=== PATIENT | male | born 1985 | race Hispanic/Latino ===

== ENCOUNTER 2018-12-02 05:45 | Emergency (ER) | payer SELFPAY ==
--- OUTSIDE RECORDS SUMMARY | 2018-12-02 05:54 | XMS REPORT ---
:1985 [facility] Address [address] [place] [address] [address] [place] [address] Care Team Providers Name Role Phone Unavailable Unavailable Unavailable Payers Payer Name Policy Type Policy Number Effective Date Expiration Date Problems This patient has no known problems. Allergies, Adverse Reactions, Alerts Allergy Allergy Status Severity Reaction(s) Onset Inactive Treating Comments Name Type Date Date Clinician No Known DA Active U 2018-06 Allergies -21 00:00:0 0 No Known DA Active U 2010-11 Allergies -03 00:00:0 0 Medications This patient has no known medications.
--- NOTE | 2018-12-02 07:47 | EDPHYS ---
Physician Documentation [facility] Name: Sly Mcgee Age: 33 yrs Sex: Male : 1985 Arrival Date: 12/02/2018 Time: 05:54 Bed 2 Private MD: ED Physician Domenico Fernandez HPI: 12/02 06:19 This 33 yrs old Male presents to ER via Ambulatory with complaints of COUGH snw BLOOD. 06:19 The patient or guardian reports cough, flu symptoms, low-grade fever, myalgias, no snw appetite, N/V/D. Onset: The symptoms/episode began/occurred suddenly, 4 day(s) ago. Severity of symptoms: At their worst the symptoms were moderate. Associated signs and symptoms: The patient has no apparent associated signs or symptoms. It is unknown whether or not the patient has had similar symptoms in the past. The patient has not recently seen a physician. Spouse with similar s/s. Historical: - Allergies: 06:11 No Known Allergies; bb - Home Meds: 06:11 None [Active]; bb - PMHx: 06:11 Pneumonia; staph infections; bb - PSHx: 06:11 Knee surgery; bb - Immunization history:: Adult Immunizations up to date. - Social history:: Smoking status: Patient uses tobacco products, denies chronic smoking, but will smoke occasionally, Patient uses alcohol, but reports only rare drinking. Patient/guardian denies using street drugs. - Ebola Screening: : No symptoms or risks identified at this time. ROS: 06:18 Constitutional: Negative for chills and weight loss, + fever 4 days ago Eyes: Negative snw for injury, pain, redness, and discharge, ENT: Negative for injury, pain, and discharge, Neck: Negative for injury, pain, and swelling, Cardiovascular: Negative for chest pain, palpitations, and edema. 06:18 Back: Negative for injury and pain, : Negative for injury, bleeding, discharge, and swelling, MS/Extremity: Negative for injury and deformity, Skin: Negative for injury, rash, and discoloration, Neuro: Negative for headache, weakness, numbness, tingling, and seizure. 06:18 Respiratory: Positive for cough, with rust-colored sputum. 06:18 Abdomen/GI: Positive for nausea, vomiting, diarrhea. Exam: 06:18 Constitutional: This is a well developed, well nourished patient who is awake, alert, snw and in no acute distress. Head/Face: Normocephalic, atraumatic. Eyes: Pupils equal round and reactive to light, extra-ocular motions intact. Lids and lashes normal. Conjunctiva and sclera are non-icteric and not injected. Cornea within normal limits. Periorbital areas with no swelling, redness, or edema. ENT: Nares patent. No nasal discharge, no septal abnormalities noted. Tympanic membranes are normal and external auditory canals are clear. Oropharynx with no redness, swelling, or masses, exudates, or evidence of obstruction, uvula midline. Mucous membranes moist. Neck: Trachea midline, no thyromegaly or masses palpated, and no cervical lymphadenopathy. Supple, full range of motion without nuchal rigidity, or vertebral point tenderness. No Meningismus. Chest/axilla: Normal chest wall appearance and motion. Nontender with no deformity. No lesions are appreciated. Cardiovascular: Regular rate and rhythm with a normal S1 and S2. No gallops, murmurs, or rubs. Normal PMI, no JVD. No pulse deficits. Respiratory: Lungs have equal breath sounds bilaterally, clear to auscultation and percussion. No rales, rhonchi or wheezes noted. No increased work of breathing, no retractions or nasal flaring. Abdomen/GI: Soft, non-tender, with normal bowel sounds. No distension or tympany. No guarding or rebound. No evidence of tenderness throughout. Back: No spinal tenderness. No costovertebral tenderness. Full range of motion. Skin: Warm, dry with normal turgor. Normal color with no rashes, no lesions, and no evidence of cellulitis. MS/ Extremity: Pulses equal, no cyanosis. Neurovascular intact. Full, normal range of motion. Neuro: Awake and alert, GCS 15, oriented to person, place, time, and situation. Cranial nerves II-XII grossly intact. Motor strength 5/5 in all extremities. Sensory grossly intact. Cerebellar exam normal. Normal gait. Vital Signs: 06:11 BP 130 / 89; Pulse 62; Resp 16 S; Temp 98.4(O); Pulse Ox 98% on R/A; Weight 113.4 kg bb (R); Height 6 ft. 4 in. (193.04 cm) (R); Pain 0/10; 07:15 BP 126 / 88; Pulse 69; Resp 18; Pulse Ox 98% ; sv 06:11 Body Mass Index 30.43 (113.40 kg, 193.04 cm) bb MDM: 06:03 Patient medically screened. snw 07:48 Data reviewed: vital signs, nurses notes. Data interpreted: Pulse oximetry: on room air snw is 98 %. Interpretation: normal. Counseling: I had a detailed discussion with the patient and/or guardian regarding: the historical points, exam findings, and any diagnostic results supporting the discharge/admit diagnosis, radiology results, the need for outpatient follow up, to return to the emergency department if symptoms worsen or persist or if there are any questions or concerns that arise at home. Special discussion: Based on the history and exam findings, there is no indication for further emergent testing or inpatient evaluation. I discussed with the patient/guardian the need to see the primary care provider for further evaluation of the symptoms. 12/02 05:56 Order name: Chest Pa And Lat (2 Views) XRAY snw Administered Medications: 08:15 Drug: Phenergan 25 mg Route: IM; Site: left gluteus; sv 08:34 Follow up: Response: No adverse reaction sv 08:15 Drug: Zithromax 500 mg Route: PO; sv 08:34 Follow up: Response: No adverse reaction sv 08:15 Drug: Rocephin (cefTRIAXone) 1 grams Route: IM; Site: left gluteus; sv 08:34 Follow up: Response: No adverse reaction sv Disposition: 12/02/18 07:46 Discharged to Home. Impression: Pneumonia, unspecified organism. - Condition is Stable. - Discharge Instructions: Fever, Adult, Community-Acquired Pneumonia, Adult, Rehydration, Adult. - Prescriptions for Tessalon Perles 100 mg Oral Capsule - take 1 capsule by ORAL route every 8 hours As needed; 15 capsule. promethazine 25 mg Oral Tablet - take 1 tablet by ORAL route every 6 hours As needed; 20 tablet. Zithromax 500 mg Oral Tablet - take 1 tablet by ORAL route once daily for 5 days; 5 tablet. - Work release form, Medication Reconciliation Form, Thank You Letter, Antibiotic Education, Prescription Opioid Use form. - Follow up: Private Physician; When: 2 - 3 days; Reason: Recheck today's complaints, Continuance of care, Re-evaluation by your physician. Follow up: Emergency Department; When: As needed; Reason: Worsening of condition. Signatures: Dispatcher [employer] Nunu Bowden RN RN Marta Can, LEVELMAN-C LEVELMAN-Csnw Kay Avila RN RN bb Corrections: (The following items were deleted from the chart) 08:35 07:46 12/02/2018 07:46 Discharged to Home. Impression: Pneumonia, unspecified organism. sv Condition is Stable. Forms are Medication Reconciliation Form, Thank You Letter, Antibiotic Education, Prescription Opioid Use. Follow up: Private Physician; When: 2 - 3 days; Reason: Recheck today's complaints, Continuance of care, Re-evaluation by your physician. Follow up: Emergency Department; When: As needed; Reason: Worsening of condition. snw
--- NOTE | 2018-12-02 07:47 | ER ---
Nurse's Notes [facility] Name: Sly Mcgee Age: 33 yrs Sex: Male : 1985 Arrival Date: 12/02/2018 Time: 05:54 Bed 2 Private MD: Diagnosis: Pneumonia, unspecified organism Presentation: 12/02 06:08 Presenting complaint: Patient states: he has been sick since with fever, bb cough, chills and body aches, when he woke up this morning he was coughing up pinkish phlegm, pt has had pneumonia in the past. He has been taking OTC cough and cold remedies with no relief. Transition of care: patient was not received from another setting of care. Onset of symptoms was November 27, 2018. Risk Assessment: Do you want to hurt yourself or someone else? Patient reports no desire to harm self or others. Initial Sepsis Screen: Does the patient meet any 2 criteria? No. Patient's initial sepsis screen is negative. Does the patient have a suspected source of infection? No. Patient's initial sepsis screen is negative. Care prior to arrival: None. 06:08 Method Of Arrival: Ambulatory bb 06:08 Acuity: MARIE 3 bb Historical: - Allergies: 06:11 No Known Allergies; bb - Home Meds: 06:11 None [Active]; bb - PMHx: 06:11 Pneumonia; staph infections; bb - PSHx: 06:11 Knee surgery; bb - Immunization history:: Adult Immunizations up to date. - Social history:: Smoking status: Patient uses tobacco products, denies chronic smoking, but will smoke occasionally, Patient uses alcohol, but reports only rare drinking. Patient/guardian denies using street drugs. - Ebola Screening: : No symptoms or risks identified at this time. Screenin:04 Abuse screen: Denies threats or abuse. Nutritional screening: No deficits noted. ea Tuberculosis screening: No symptoms or risk factors identified. Fall Risk None identified. Assessment: 06:50 General: Appears in no apparent distress. Behavior is calm, cooperative, appropriate ea for age. Pain: Denies pain. Neuro: Level of Consciousness is awake, alert, obeys commands, Oriented to person, place, time, situation. Cardiovascular: Patient's skin is warm and dry. Respiratory: Airway is patent Respiratory effort is even, unlabored, Respiratory pattern is regular, symmetrical. Respiratory: Parent/caregiver reports the patient having cough that is productive, hacking, persistent. Derm: Skin is dry, Skin is normal, Skin temperature is warm. 07:30 Reassessment: Patient appears in no apparent distress at this time. No changes from sv previously documented assessment. Patient and/or family updated on plan of care and expected duration. Pain level reassessed. Patient is alert, oriented x 3, equal unlabored respirations, skin warm/dry/pink. 08:35 Reassessment: Patient appears in no apparent distress at this time. No changes from sv previously documented assessment. Patient and/or family updated on plan of care and expected duration. Pain level reassessed. Patient is alert, oriented x 3, equal unlabored respirations, skin warm/dry/pink. Vital Signs: 06:11 BP 130 / 89; Pulse 62; Resp 16 S; Temp 98.4(O); Pulse Ox 98% on R/A; Weight 113.4 kg bb (R); Height 6 ft. 4 in. (193.04 cm) (R); Pain 0/10; 07:15 BP 126 / 88; Pulse 69; Resp 18; Pulse Ox 98% ; sv 06:11 Body Mass Index 30.43 (113.40 kg, 193.04 cm) ED Course: 05:54 Patient arrived in ED. es 05:56 Marta Leonard FNP-C is PHCP. snw 05:56 Domenico Fernandez MD is Attending Physician. snw 06:10 Triage completed. bb 06:11 Arm band placed on Patient placed in an exam room, on a stretcher, on pulse oximetry. bb Family accompanied patient. 06:41 Chest Pa And Lat (2 Views) XRAY In Process Unspecified. EDMS 06:50 Patient has correct armband on for positive identification. Bed in low position. Call ea light in reach. 08:14 Nunu Gutierrez, CRAIG is Primary Nurse. sv 08:34 No provider procedures requiring assistance completed. Patient did not have IV access sv during this emergency room visit. Administered Medications: 08:15 Drug: Phenergan 25 mg Route: IM; Site: left gluteus; sv 08:34 Follow up: Response: No adverse reaction sv 08:15 Drug: Zithromax 500 mg Route: PO; sv 08:34 Follow up: Response: No adverse reaction sv 08:15 Drug: Rocephin (cefTRIAXone) 1 grams Route: IM; Site: left gluteus; sv 08:34 Follow up: Response: No adverse reaction sv Outcome: 07:46 Discharge ordered by MD. mcnamara 08:35 Patient left the ED. sv 08:35 Discharged to home ambulatory, with family. sv 08:35 Condition: stable 08:35 Discharge instructions given to patient, family, Instructed on discharge instructions, follow up and referral plans. medication usage, Demonstrated understanding of instructions, follow-up care, medications, Prescriptions given X 3. Signatures: Dispatcher [employer] Nunu Bowden RN RN Marta Can, GROUP PRESIDENT-C GROUP PRESIDENT-Csnw Courtney Eubanks Brenda RN RN Hanna Loredo RN RN elidia
[2018-12-02] MEDS ORDERED: AZITHROMYCIN 250 MG TAB ONE (08:17)
[2018-12-02] MEDS ORDERED: CEFTRIAXONE 1000 MG/VIAL ONE (08:17)
[2018-12-02] MEDS ORDERED: LIDOCAINE 1% MPF 2 ML AMPULE ONE (08:17)
[2018-12-02] MEDS ORDERED: PROMETHAZINE HCL 50 MG/ML AMP IM ONE (08:18)
--- NOTE | 2018-12-02 08:40 | RAD REPORT ---
EXAM DESCRIPTION: Astrid Xiong (2 Views)12/02/2018 6:45 am CLINICAL HISTORY: Cough COMPARISON: None FINDINGS: The lungs appear clear of acute infiltrate. The heart is normal size IMPRESSION: No acute abnormalities displayed
== END 2018-12-02 08:35 | disposition home or self-care (01) ==
LOC: ER 05:47
DX: J18.9 Pneumonia, unspecified organism (principal); Z72.0 Tobacco use
CPT/HCPCS: 71046; 96372; 99284; J2001; J2550

== ENCOUNTER 2019-01-19 06:06 | Emergency (ER) | payer SELFPAY ==
--- OUTSIDE RECORDS SUMMARY | 2019-01-19 06:09 | XMS REPORT ---
:1985 [facility] Address [address] [place] [address] [address] [place] [address] Care Team Providers Name Role Phone Unavailable [...]
[2019-01-19] MEDS ORDERED: ONDANSETRON 4 MG (ODT) TAB ONE (06:48)
--- NOTE | 2019-01-19 07:05 | EDPHYS ---
Physician Documentation [facility] Name: Sly Mcgee Age: 33 yrs Sex: Male : 1985 Arrival Date: 01/19/2019 Time: 06:10 Bed 20 Private MD: ED Physician Tom Oakes HPI: 01/19 06:31 This 33 yrs old Male presents to ER via Ambulatory with complaints of Nausea, jr8 "feels hot". 06:31 The patient presents to the emergency department with nausea, vomiting. Onset: The jr8 symptoms/episode began/occurred gradually, 3 day(s) ago. Possible causes: unknown. The symptoms are aggravated by nothing. The symptoms are alleviated by nothing. Associated signs and symptoms: Pertinent positives: dizziness. Severity of symptoms: At their worst the symptoms were mild. The patient has not experienced similar symptoms in the past. The patient has not recently seen a physician. Patient with recent complaints of generally not feeling well and nausea. Sent home from work the other day and still not feeling well. Historical: - Allergies: 06:20 No Known Allergies; bb - Home Meds: 06:20 None [Active]; bb - PMHx: 06:20 Pneumonia; staph infections; bb - PSHx: 06:20 Knee surgery; bb - Immunization history:: Adult Immunizations up to date. - Social history:: Smoking status: Patient/guardian denies using tobacco. - Ebola Screening: : No symptoms or risks identified at this time. ROS: 07:02 Eyes: Negative for injury, pain, redness, and discharge, ENT: Negative for injury, jr8 pain, and discharge, Neck: Negative for injury, pain, and swelling, Cardiovascular: Negative for chest pain, palpitations, and edema, Respiratory: Negative for shortness of breath, cough, wheezing, and pleuritic chest pain, Back: Negative for injury and pain, MS/Extremity: Negative for injury and deformity, Skin: Negative for injury, rash, and discoloration. 07:02 Abdomen/GI: Positive for nausea, Negative for abdominal pain, vomiting, diarrhea, abdominal cramps, abdominal distension, anorexia, dysphagia, hematemesis, black/tarry stool, rectal pain, rectal bleeding, bowel incontinence, flatulence. 07:02 Neuro: Positive for dizziness, Negative for altered mental status, gait disturbance, headache, hearing loss, loss of consciousness, numbness, seizure activity, speech changes, syncope, near syncope, tingling, tinnitus, tremor, visual changes, weakness. Exam: 07:02 Eyes: Pupils equal round and reactive to light, extra-ocular motions intact. Lids and jr8 lashes normal. Conjunctiva and sclera are non-icteric and not injected. Cornea within normal limits. Periorbital areas with no swelling, redness, or edema. ENT: Nares patent. No nasal discharge, no septal abnormalities noted. Tympanic membranes are normal and external auditory canals are clear. Oropharynx with no redness, swelling, or masses, exudates, or evidence of obstruction, uvula midline. Mucous membranes moist. Neck: Trachea midline, no thyromegaly or masses palpated, and no cervical lymphadenopathy. Supple, full range of motion without nuchal rigidity, or vertebral point tenderness. No Meningismus. Cardiovascular: Regular rate and rhythm with a normal S1 and S2. No gallops, murmurs, or rubs. Normal PMI, no JVD. No pulse deficits. Respiratory: Lungs have equal breath sounds bilaterally, clear to auscultation and percussion. No rales, rhonchi or wheezes noted. No increased work of breathing, no retractions or nasal flaring. Abdomen/GI: Soft, non-tender, with normal bowel sounds. No distension or tympany. No guarding or rebound. No evidence of tenderness throughout. Back: No spinal tenderness. No costovertebral tenderness. Full range of motion. Skin: Warm, dry with normal turgor. Normal color with no rashes, no lesions, and no evidence of cellulitis. MS/ Extremity: Pulses equal, no cyanosis. Neurovascular intact. Full, normal range of motion. Neuro: Awake and alert, GCS 15, oriented to person, place, time, and situation. Cranial nerves II-XII grossly intact. Motor strength 5/5 in all extremities. Sensory grossly intact. Cerebellar exam normal. Normal gait. Vital Signs: 06:20 BP 124 / 88; Pulse 52; Resp 16 S; Temp 98.6(O); Pulse Ox 97% on R/A; Weight 117.03 kg bb (R); Height 6 ft. 4 in. (193.04 cm) (R); Pain 4/10; 07:14 BP 126 / 80; Pulse 63; Resp 16; Temp 98; Pulse Ox 99% ; bp 06:20 Body Mass Index 31.40 (117.03 kg, 193.04 cm) masood MDM: 06:23 Patient medically screened. jr8 07:02 Data reviewed: vital signs, nurses notes, and as a result, I will discharge patient. jr8 Data interpreted: Pulse oximetry: on room air is 97 %. Interpretation: normal. Counseling: I had a detailed discussion with the patient and/or guardian regarding: the historical points, exam findings, and any diagnostic results supporting the discharge/admit diagnosis, the need for outpatient follow up, a family practitioner, to return to the emergency department if symptoms worsen or persist or if there are any questions or concerns that arise at home. ED course: Patient feeling better. Tolerated PO challenge. VS stable. No acute findings on physical exam. Recommend rest and will give nausea and dizziness medications for next few days. If other symptoms were to evolved or he get worse, to come back for further evaluation . 01/19 06:30 Order name: PO challenge; Complete Time: 06:47 [facility] Administered Medications: 06:34 Drug: Zofran 4 mg Route: PO; jd3 06:47 Follow up: Response: Nausea is decreased jd3 Disposition: 01/19/19 07:04 Discharged to Home. Impression: Nausea, Dizziness. - Condition is Stable. - Discharge Instructions: Nausea, Adult. - Prescriptions for Meclizine 25 mg Oral Tablet - take 1 tablet by ORAL route every 8 hours As needed; 30 tablet. Zofran 4 mg Oral Tablet - take 1 tablet by ORAL route every 12 hours As needed; 20 tablet. - Medication Reconciliation Form, Thank You Letter, Antibiotic Education, Prescription Opioid Use, Work release form form. - Follow up: Private Physician; When: 2 - 3 days; Reason: Recheck today's complaints, Continuance of care, Re-evaluation by your physician. - Problem is new. - Symptoms have improved. Signatures: Kay Avila, CRAIG RN Parag Kincaid PA PA jr8 Steve Terrazas RN RN jd3 Fritz Sung RN RN bp Corrections: (The following items were deleted from the chart) 07:16 07:04 01/19/2019 07:04 Discharged to Home. Impression: Nausea; Dizziness. Condition is bp Stable. Forms are Medication Reconciliation Form, Thank You Letter, Antibiotic Education, Prescription Opioid Use. Follow up: Private Physician; When: 2 - 3 days; Reason: Recheck today's complaints, Continuance of care, Re-evaluation by your physician. Problem is new. Symptoms have improved. jr8
--- NOTE | 2019-01-19 07:05 | ER ---
Nurse's Notes [facility] Name: Sly Mcgee Age: 33 yrs Sex: Male : 1985 Arrival Date: 01/19/2019 Time: 06:10 Bed 20 [facility] MD: Diagnosis: Nausea;Dizziness Presentation: 01/19 06:17 Presenting complaint: Patient states: he started feeling dizzy at work on Saturday with bb blurred vision and vomiting was sent home and did not go to work yesterday for same symptoms and still does not feel well today. Transition of care: patient was not received from another setting of care. Onset of symptoms was January 17, 2019. Risk Assessment: Do you want to hurt yourself or someone else? Patient reports no desire to harm self or others. Initial Sepsis Screen: Does the patient meet any 2 criteria? No. Patient's initial sepsis screen is negative. Does the patient have a suspected source of infection? No. Patient's initial sepsis screen is negative. Care prior to arrival: None. 06:17 Method Of Arrival: Ambulatory bb 06:17 Acuity: MARIE 3 bb 06:20 Note pt also states he has body aches all over. bb Historical: - Allergies: 06:20 No Known Allergies; bb - Home Meds: 06:20 None [Active]; bb - PMHx: 06:20 Pneumonia; staph infections; bb - PSHx: 06:20 Knee surgery; bb - Immunization history:: Adult Immunizations up to date. - Social history:: Smoking status: Patient/guardian denies using tobacco. - Ebola Screening: : No symptoms or risks identified at this time. Screenin:26 Abuse screen: Denies threats or abuse. Nutritional screening: No deficits noted. jd3 Tuberculosis screening: No symptoms or risk factors identified. Fall Risk Ambulatory Aid- None/Bed Rest/Nurse Assist (0 pts). Gait- Normal/Bed Rest/Wheelchair (0 pts) Mental Status- Oriented to own ability (0 pts). Total Enriquez Fall Scale indicates No Risk (0-24 pts). Assessment: 06:19 General: Appears in no apparent distress. uncomfortable, Behavior is calm, cooperative, jd3 appropriate for age. Pain: Complains of pain in right upper quadrant Pain does not radiate. Quality of pain is described as aching, tender. Neuro: Level of Consciousness is awake, alert, obeys commands, Oriented to person, place, time, situation. Cardiovascular: Denies chest pain, Capillary refill < 3 seconds Patient's skin is warm and dry. Respiratory: Airway is patent Respiratory effort is even, unlabored, Respiratory pattern is regular, symmetrical, Denies cough, shortness of breath. GI: Abdomen is flat, non-distended, Bowel sounds present X 4 quads. Abd is soft X 4 quads Abdomen is tender to palpation in right upper quadrant Reports diarrhea, nausea, Patient currently denies constipation, vomiting. : No signs and/or symptoms were reported regarding the genitourinary system. EENT: No signs and/or symptoms were reported regarding the EENT system. Derm: Skin is intact, Skin is dry, Skin is normal, Skin temperature is warm. Musculoskeletal: Circulation, motion, and sensation intact. Range of motion: intact in all extremities. 07:00 Reassessment: RECD REPORT FROM MAIA SRINIVASAN. 33YO HM P/W NAUSEA. ALL CURRENT ORDERS bp COMPLETED. VS STABLE, ALL CURRENT ORDERS COMPLETED. 07:15 Reassessment: PT D/C HOME AMBULATORY, DX WITH NAUSEA AND DIZZINESS. bp Vital Signs: 06:20 BP 124 / 88; Pulse 52; Resp 16 S; Temp 98.6(O); Pulse Ox 97% on R/A; Weight 117.03 kg bb (R); Height 6 ft. 4 in. (193.04 cm) (R); Pain 4/10; 07:14 BP 126 / 80; Pulse 63; Resp 16; Temp 98; Pulse Ox 99% ; bp 06:20 Body Mass Index 31.40 (117.03 kg, 193.04 cm) bb ED Course: 06:10 Patient arrived in ED. do 06:18 Triage completed. bb 06:19 Steve Terrazas RN is Primary Nurse. jd3 06:20 Arm band placed on Patient placed in an exam room, on a stretcher, on pulse oximetry. bb 06:23 Parag Reddy PA is PHCP. jr8 06:23 Tom Oakes MD is Attending Physician. jr8 06:27 Patient has correct armband on for positive identification. Bed in low position. Call jd3 light in reach. Side rails up X 1. 07:16 No provider procedures requiring assistance completed. Patient did not have IV access bp during this emergency room visit. Administered Medications: 06:34 Drug: Zofran 4 mg Route: PO; jd3 06:47 Follow up: Response: Nausea is decreased jd3 Outcome: 07:04 Discharge ordered by MD. ramirez 07:16 Discharged to home ambulatory. bp 07:16 Condition: stable 07:16 Discharge instructions given to patient, Instructed on discharge instructions, follow up and referral plans. medication usage, Demonstrated understanding of instructions, follow-up care, medications, Prescriptions given X 2. 07:16 Patient left the ED. bp Signatures: Kay Avila RN RN Parag Kincaid PA PA jr8 Enedina Davila Jonathon, RN RN jFritz Zuñiga RN RN bp
== END 2019-01-19 07:16 | disposition home or self-care (01) ==
LOC: ER 06:06
DX: R42 Dizziness and giddiness (principal)
CPT/HCPCS: 99283

== ENCOUNTER 2019-03-25 02:01 | Emergency (ER) | payer SELFPAY ==
--- OUTSIDE RECORDS SUMMARY | 2019-03-25 02:02 | XMS REPORT ---
:1985 [facility] Address [address] [place] [address] [address] [place] [address] Care Team Providers Name Role Phone Unavailable [...]
[2019-03-25] MEDS ORDERED: HYDROCODONE/APAP 5/325 MG TAB ONE (02:27)
[2019-03-25] MEDS ORDERED: KETOROLAC 30 MG/ML INJ ONE (02:28)
--- NOTE | 2019-03-25 03:34 | ER ---
Nurse's Notes [facility] Name: Sly Mcgee Age: 33 yrs Sex: Male : 1985 Arrival Date: 03/25/2019 Time: 02:03 Bed 14 Private MD: Diagnosis: Pain in right shoulder;Pain in left knee Presentation: 03/25 02:12 Presenting complaint: Patient states: right shoulder pain started at 1900. pt c/o the ak1 pain is now in his right elbow, right knee. pt c/o pain in left elbow and "all other joints" pt c/o "legs falling asleep today" pt with steady gait to ER14. Transition of care: patient was not received from another setting of care. Onset of symptoms is unknown. Risk Assessment: Do you want to hurt yourself or someone else? Patient reports no desire to harm self or others. Initial Sepsis Screen: Does the patient meet any 2 criteria? No. Patient's initial sepsis screen is negative. Does the patient have a suspected source of infection? No. Patient's initial sepsis screen is negative. Care prior to arrival: None. 02:12 Acuity: MARIE 3 ak1 02:12 Method Of Arrival: Ambulatory ak1 Triage Assessment: 02:14 General: Appears in no apparent distress. Behavior is calm, cooperative. ak1 Historical: - Allergies: 02:14 No Known Allergies; ak1 - Home Meds: 02:14 None [Active]; ak1 - PMHx: 02:14 Pneumonia; staph infections; ak1 - PSHx: 02:14 Knee surgery; ak1 - Immunization history:: Adult Immunizations unknown. - Social history:: Smoking status: Patient uses tobacco products, denies chronic smoking, but will smoke occasionally. - Ebola Screening: : No symptoms or risks identified at this time. Screenin:14 Abuse screen: Denies threats or abuse. Denies injuries from another. Nutritional ak1 screening: No deficits noted. Tuberculosis screening: No symptoms or risk factors identified. Fall Risk None identified. Assessment: 02:15 General: Appears in no apparent distress. uncomfortable, Behavior is calm, cooperative, jb4 appropriate for age. Pain: Complains of pain in right arm and left knee Pain does not radiate. Pain currently is 8 out of 10 on a pain scale. Quality of pain is described as stabbing, throbbing. Neuro: Level of Consciousness is awake, alert, obeys commands, Oriented to person, place, time, situation. Cardiovascular: Patient's skin is warm and dry. Respiratory: Airway is patent Respiratory effort is even, unlabored, Respiratory pattern is regular, symmetrical. GI: No deficits noted. No signs and/or symptoms were reported involving the gastrointestinal system. : No deficits noted. No signs and/or symptoms were reported regarding the genitourinary system. EENT: No deficits noted. No signs and/or symptoms were reported regarding the EENT system. Derm: Skin is intact, Skin is pink, warm \\T\\ dry. Musculoskeletal: Circulation, motion, and sensation intact. Range of motion: intact in all extremities. 03:15 Reassessment: Patient appears in no apparent distress at this time. Patient and/or jb4 family updated on plan of care and expected duration. Pain level reassessed. Patient is alert, oriented x 3, equal unlabored respirations, skin warm/dry/pink. 03:40 Reassessment: Patient appears in no apparent distress at this time. Patient and/or jb4 family updated on plan of care and expected duration. Pain level reassessed. Patient is alert, oriented x 3, equal unlabored respirations, skin warm/dry/pink. PT verbalized understanding of d/c and follow up instructions. Ambulated out of ED with family with steady gait. Vital Signs: 02:12 BP 141 / 90; Pulse 71; Resp 16; Temp 97.5; Pulse Ox 97% on R/A; Weight 117.93 kg (R); ak1 Height 6 ft. 4 in. (193.04 cm) (R); Pain 9/10; 03:30 BP 120 / 97; Pulse 63; Resp 16; Pulse Ox 96% on R/A; jb4 02:12 Body Mass Index 31.65 (117.93 kg, 193.04 cm) ak1 ED Course: 02:03 Patient arrived in ED. ag3 02:13 Noé Navarro PA is PHCP. jmm 02:13 Domenico Fernandez MD is Attending Physician. jmm 02:14 Triage completed. ak1 02:14 Arm band placed on Patient placed in an exam room, on a stretcher, on pulse oximetry, ak1 Patient notified of wait time. 02:14 Patient has correct armband on for positive identification. Bed in low position. Call ak1 light in reach. Side rails up X 1. Adult w/ patient. Pulse ox on. NIBP on. 02:21 Stan Baez, RN is Primary Nurse. jb4 02:45 Patient moved to radiology via wheelchair. kw 02:45 X-ray completed. Patient tolerated procedure well. Patient moved to CT via wheelchair. kw 03:20 Shoulder Right (2 View) XRAY In Process Unspecified. EDMS 03:20 Knee Left 3 View XRAY In Process Unspecified. EDMS 03:20 Hip Left 2 View XRAY In Process Unspecified. EDMS 03:32 Martín Rebollar MD is Referral Physician. [facility] 03:42 No provider procedures requiring assistance completed. Patient did not have IV access jb4 during this emergency room visit. Administered Medications: 02:32 Drug: Ketorolac 30 mg Route: IM; Site: right gluteus; jb4 03:00 Follow up: Response: No adverse reaction; Pain is decreased jb4 02:32 Drug: Plaquemine 5 mg-325 mg 1 tabs {Note: Rass score 0.} Route: PO; jb4 03:00 Follow up: Response: No adverse reaction; Pain is decreased; RASS: Alert and Calm (0) jb Outcome: 03:32 Discharge ordered by MD. [facility] 03:42 Discharged to home ambulatory, with family. jb4 03:42 Condition: stable 03:42 Discharge instructions given to patient, family, Instructed on discharge instructions, follow up and referral plans. medication usage, Demonstrated understanding of instructions, follow-up care, medications, Prescriptions given X 1. 03:43 Patient left the ED. jb4 Signatures: Dispatcher [employer] EDMS Noé Navarro PA PA jmm Whitley, Kimberlee kw Krenek, Amber RN RN ak1 Stan Baez, RN RN jb4 Carmen Solomon3
--- NOTE | 2019-03-25 03:36 | EDPHYS ---
Physician Documentation [facility] Name: Sly Mcgee Age: 33 yrs Sex: Male : 1985 Arrival Date: 03/25/2019 Time: 02:03 Bed 14 Private MD: ED Physician Domenico Fernandez HPI: 03/25 01:30 This 33 yrs old Male presents to ER via Ambulatory with complaints of Shoulder jmm Pain. 01:30 The patient or guardian complains of pain. Onset: The symptoms/episode began/occurred jmm today, at 19:00. Modifying factors: the symptoms are alleviated by remaining still, The symptoms are aggravated by movement. This is a 33 year old female with no chronic medical conditions that presents to the ED with complaints of right shoulder pain beginning this evening at 7 pm. Patient states the pain has worsened since. Denies fever. Patient also complains of ongoing lower back pain with pain traveling from the left thigh to the left knee. . Historical: - Allergies: 02:14 No Known Allergies; ak1 - Home Meds: 02:14 None [Active]; ak1 - PMHx: 02:14 Pneumonia; staph infections; ak1 - PSHx: 02:14 Knee surgery; ak1 - Immunization history:: Adult Immunizations unknown. - Social history:: Smoking status: Patient uses tobacco products, denies chronic smoking, but will smoke occasionally. - Ebola Screening: : No symptoms or risks identified at this time. ROS: 01:30 Constitutional: Negative for fever, chills, and weight loss, Cardiovascular: Negative jmm for chest pain, palpitations, and edema, Respiratory: Negative for shortness of breath, cough, wheezing, and pleuritic chest pain. 01:30 Back: Positive for pain with movement. 01:30 MS/extremity: Positive for pain. 01:30 All other systems are negative. Exam: 01:30 Constitutional: This is a well developed, well nourished patient who is awake, alert, jmm and in no acute distress. Head/Face: atraumatic. Eyes: EOMI, no conjunctival erythema appreciated ENT: Moist Mucus Membranes Neck: Trachea midline, Supple Chest/axilla: Normal chest wall appearance and motion. Cardiovascular: Regular rate and rhythm. No edema appreciated Respiratory: Normal respirations, no respiratory distress appreciated Back: Normal ROM Skin: General appearance color normal 01:30 Musculoskeletal/extremity: ROM: limited passive range of motion due to pain, Circulation is intact in all extremities. right anterior shoulder is tenderness on palpation, full radial pulse, full superintendent drivers strength. from appreciated to the left knee, compartments are soft, NVI, full dorsalis pulse bilaterally. 01:30 Skin: Appearance: Color: normal in color, abscess. 01:30 Neuro: Orientation: is normal, Mentation: is normal, Memory: is normal. 01:30 Psych: Behavior/mood is pleasant, cooperative. Vital Signs: 02:12 BP 141 / 90; Pulse 71; Resp 16; Temp 97.5; Pulse Ox 97% on R/A; Weight 117.93 kg (R); ak1 Height 6 ft. 4 in. (193.04 cm) (R); Pain 9/10; 03:30 BP 120 / 97; Pulse 63; Resp 16; Pulse Ox 96% on R/A; jb4 02:12 Body Mass Index 31.65 (117.93 kg, 193.04 cm) ak1 MDM: 02:13 Patient medically screened. [facility] 03:31 Data reviewed: vital signs, nurses notes. Counseling: I had a detailed discussion with [facility] the patient and/or guardian regarding: the historical points, exam findings, and any diagnostic results supporting the discharge/admit diagnosis, radiology results, the need for outpatient follow up, to return to the emergency department if symptoms worsen or persist or if there are any questions or concerns that arise at home. ED course: Patient has decreased pain on reevaluation. patient is advised to follow up with ortho and otherwise given strict return precautions. patient understood and agrees with the plan of care. . 03/25 02:20 Order name: Shoulder Right (2 View) XRAY [facility] 03/25 02:20 Order name: Knee Left 3 View XRAY [facility] 03/25 02:20 Order name: Hip Left 2 View XRAY [facility] Administered Medications: 02:32 Drug: Ketorolac 30 mg Route: IM; Site: right gluteus; 4 03:00 Follow up: Response: No adverse reaction; Pain is decreased [facility] 02:32 Drug: [place] 5 mg-325 mg 1 tabs {Note: Rass score 0.} Route: PO; jb4 03:00 Follow up: Response: No adverse reaction; Pain is decreased; RASS: Alert and Calm (0) jb4 Disposition: 06:54 Co-signature as Attending Physician, Domenico Fernandez MD I agree with the assessment and tw4 plan of care. Disposition: 03/25/19 03:32 Discharged to Home. Impression: Pain in right shoulder, Pain in left knee. - Condition is Stable. - Discharge Instructions: Joint Pain, Musculoskeletal Pain, Shoulder Pain, Knee Pain. - Prescriptions for Ibuprofen 800 mg Oral Tablet - take 1 tablet by ORAL route every 8 hours As needed take with food; 30 tablet. - Medication Reconciliation Form, Thank You Letter, Antibiotic Education, Prescription Opioid Use, Work release form form. - Follow up: Martín Rebollar MD; When: 2 - 3 days; Reason: Recheck today's complaints, Continuance of care, Re-evaluation by your physician. Signatures: Dispatcher [employer] EDMS Noé Navarro PA PA jmm Krenek, Amber, RN RN ak1 Stan Baez RN RN jb4 Domenico Fernandez MD MD tw4 Corrections: (The following items were deleted from the chart) 03:43 03:32 03/25/2019 03:32 Discharged to Home. Impression: Pain in right shoulder; Pain in jb4 left knee. Condition is Stable. Forms are Medication Reconciliation Form, Thank You Letter, Antibiotic Education, Prescription Opioid Use. Follow up: Martín Rebollar; When: 2 - 3 days; Reason: Recheck today's complaints, Continuance of care, Re-evaluation by your physician. andrea
--- NOTE | 2019-03-25 06:45 | RAD REPORT ---
EXAM DESCRIPTION: Shoulder Right 2 View - 03/25/2019 2:48 am CLINICAL HISTORY: Nontraumatic right shoulder pain COMPARISON: None. TECHNIQUE: Internal and external rotation views of the right shoulder were obtained. FINDINGS: There is no fracture or dislocation. AC joint is normal in appearance. No acute or suspic ious findings. IMPRESSION: Negative two-view right shoulder examination.
--- NOTE | 2019-03-25 06:46 | RAD REPORT ---
EXAM DESCRIPTION: RAD - Hip Left 2 View - 03/25/2019 2:49 am CLINICAL HISTORY: Nontraumatic left hip pain COMPARISON: None. FINDINGS: AP and frogleg views of the left hip were obtained. There is no fracture or dislocation. N o AVN findings. No acute or destructive bony process seen. No soft tissue abnormality. IMPRESSION: Negative left hip examination for acute or significant findings.
--- NOTE | 2019-03-25 06:46 | RAD REPORT ---
EXAM DESCRIPTION: RAD - Knee Left 3 View - 03/25/2019 2:50 am CLINICAL HISTORY: Nontraumatic left knee pain COMPARISON: None. FINDINGS: No fracture, dislocation or periosteal reaction.No joint effusion seen. No joint space sidra rowing. No soft tissue abnormality. IMPRESSION: Negative left knee. Clinical concerns for internal derangement or occult bony injury could be further assessed with MR im aging.
== END 2019-03-25 03:43 | disposition home or self-care (01) ==
LOC: ER 02:01
DX: M25.511 Pain in right shoulder (principal); M25.562 Pain in left knee; Z72.0 Tobacco use
CPT/HCPCS: 96372; 99284

== ENCOUNTER 2019-07-24 05:57 | Emergency (ER) | payer SELFPAY ==
--- OUTSIDE RECORDS SUMMARY | 2019-07-24 05:59 | XMS REPORT | Continuity of Care Document ---
:1985 Author Organization [facility] HCIS Support Name Relationship Address Phone MD IRLANDA GANGA Unavailable [address] [place] [address] Allergies, Adverse Reactions, Alerts Allergen Type Severity Reaction Last Updated Verified Status No Known Drug Allergy Unknown June No Active Allergies 2018 Medications Medication Status Dose Units Route Sig Qty Days Start End Instructions Date Date Amoxicillin Active 500 MG PO Three June (Amoxil) 500 Times A , Mg CAP Day 2018 4:32pm Oseltamivir Active 75 MG PO Twice A June Phosphate Day , (Tamiflu) 75 2019 Mg CAP 4:32pm Problems No problem information available. Procedures Procedure Date Performed Status X-ray of chest, two views July 17, 2019 completed Relevant Diagnostic Tests and/or Laboratory Data Laboratory Results Test Date/Time Result Interpretation Reference Result Performing Range Comment Site Influenza June NEGATIVE Negative A negative [facility] , [address] Virus Type A 2018 test result [facility] [address] (PCR) 3:43pm does not exclude infection with the influenza virus. Results should be used in conjunction with clinical findings. Influenza June POSITIVE Negative [facility], [address] Virus Type B 2018 [facility] [address] (PCR) 3:43pm Diagnostic Imaging Reports Report Dictated Date/Time Dictated By Status Chest X-Ray July 17, 2019 EDIE JACKSON MD completed 3:42pm Chest 2 views 07/17/2019 at 3:35 PM. HISTORY: 33-year-old male. Fever. Chest pain. COMPARISON: No comparison exam is available. FINDINGS: The lungs are clear. There are no effusions. The heart is normal size. The regional skeleton is intact. IMPRESSION: 1. No evidence of active disease. 2. Recommend follow-up as clinically warranted. Dictated By: EDIE JACKSON MD Date Dictated: 07/17/19 [id number] Signed by: EDIE JACKSON MD Date Signed: 07/17/19 1543 Health Concerns Health Concerns may be documented in an alternate section. Advance Directives Advance Directive Response Recorded Date/Time Does the Patient have an No July 17, 2019 2:03pm Advance Directive? Chief Complaint and Reason for Visit Chief Complaint Fever Adult Reason for Visit [id number] Encounters Encounter Location(s) Arrival/Admit Date Discharge/Depart Date Provider(s) Departed [facility] July 17, July 17, 2019 GANGA FOURNIER [facility] [place] 2019 2:03pm 4:53pm MD Assessments No Assessments Information Available Functional Status Observation Response Date Recorded Onset Within the Last 7 Days No Problem Identified July 17, 2019 1:44pm Goals Goals may be documented in an alternate section. Immunizations No Immunization Information Available Mental Status No Mental Status Information Available Medical Equipment No Medical Equipment Information available Plan of Treatment Your chest x-ray shows no evidence of a pneumonia. You did test positive for influenza B. Follow-up with primary care doctor within 48 hours. Drink plenty of fluids and keep well-hydrated. Continue Motrin and Tylenol for body aches and fever. Return to ER for worsening of symptoms, vomiting, or any additional urgent concerns Future Tests Future scheduled test information is unavailable Pending Tests Pending diagnostic test information is unavailable Future Visits Future appointment information is unavailable Referrals to Other Providers Referral information is unavailable Future Procedures Future procedure information is unavailable Future Medications Future medication information is unavailable Patient Instructions Ear Infections (Otitis Media) Flu, Adult (DC) Social History Smoking Status Status Date of Observation Smokes tobacco daily (finding) July 17, 2019 1:44pm Observation Status Observation Response Date of Response Hx Tobacco Use Yes July 17, 2019 1:44pm Assigned Sex Male Vital Signs Vital Reading Result Reference Range Collection Date/Time Body Temperature 100.9 [degF] (97.6 - 99.5) July 17, 2019 4:51pm Heart Rate 127 /min (60 - 100) July 17, 2019 1:45pm Heart Rate 115 /min July 17, 2019 4:51pm Respiratory rate 22 /min (12 - 24) July 17, 2019 1:45pm Respiratory rate 18 /min July 17, 2019 4:51pm BP Systolic 132 mm[Hg] (100 - 140) July 17, 2019 1:45pm BP Systolic 125 mm[Hg] July 17, 2019 4:51pm BP Diastolic 85 mm[Hg] (60 - 90) July 17, 2019 1:45pm BP Diastolic 95 mm[Hg] July 17, 2019 4:51pm Weight 257.19 [lb_av] July 17, 2019 1:41pm BMI (Body Mass Index) 31.3 kg/m2 July 17, 2019 1:45pm
--- OUTSIDE RECORDS SUMMARY | 2019-07-24 05:59 | XMS REPORT ---
:1985 [facility] Address [address] [place] [address] [address] [place] [address] Care Team Providers Name Role Phone Unavailable [...]
[2019-07-24 06:49] LABS: Absolute Lymphocytes (CBC) 1.9 K/uL (0.7-4.9); Basophils % 0.4 % (0-1.3); Hematocrit 43.4 % (39.6-49.0); Lymphocytes % 37.6 % (15.3-44.8); RBC Red Blood Cell Count 4.84 M/uL (4.33-5.43)
[2019-07-24] MEDS ORDERED: NA CHLORIDE 0.9% 500 ML ONE (06:50)
[2019-07-24] MEDS ORDERED: ONDANSETRON 4 MG/2 ML VIAL ONE (07:00)
[2019-07-24 07:05] LABS: Protime INR 1.01
[2019-07-24 07:08] LABS: BUN Blood Urea Nitrogen 11 mg/dL (7-18); Bicarbonate 26 mmol/L (21-32); Glucose Level 103 mg/dL (74-106); Potassium 3.5 mmol/L (3.5-5.1); Sodium Level 143 mmol/L (136-145); Troponin (Emerg Dept Use Only) < 0.02 ng/mL (0.0-0.045)
--- NOTE | 2019-07-24 07:29 | ER ---
Nurse's Notes [facility] Name: Sly Mcgee Age: 33 yrs Sex: Male : 1985 Arrival Date: 07/24/2019 Time: 06:01 Bed 23 Private MD: Diagnosis: Pneumonia due to other specified bacteria;Cough;Hemoptysis Presentation: 07/24 06:21 Presenting complaint: Patient states: he was dx with the flu last Saturday and now is bb coughing up bright red blood. Transition of care: patient was not received from another setting of care. Onset of symptoms was July 24, 2019. Risk Assessment: Do you want to hurt yourself or someone else? Patient reports no desire to harm self or others. Initial Sepsis Screen: Does the patient meet any 2 criteria? No. Patient's initial sepsis screen is negative. Does the patient have a suspected source of infection? No. Patient's initial sepsis screen is negative. Care prior to arrival: None. 06:21 Method Of Arrival: Ambulatory bb 06:21 Acuity: MARIE 2 bb Historical: - Allergies: 06:24 No Known Allergies; bb - Home Meds: 06:24 Tamiflu Oral [Active]; Amoxicillin Oral [Active]; bb - PMHx: 06:24 Pneumonia; staph infections; bb - PSHx: 06:24 Knee surgery; bb - Immunization history:: Adult Immunizations up to date. - Social history:: Smoking status: Patient uses tobacco products, quit 2 weeks ago. - Ebola Screening: : No symptoms or risks identified at this time. Screenin:26 Abuse screen: Denies threats or abuse. Nutritional screening: No deficits noted. bb Tuberculosis screening: No symptoms or risk factors identified. Fall Risk None identified. Assessment: 06:26 General: Appears in no apparent distress. Behavior is calm, cooperative. Pain: Denies bb pain. Neuro: Level of Consciousness is awake, alert, obeys commands, Oriented to person, place, time, situation. Cardiovascular: Heart tones S1 S2 present. Respiratory: Reports hemoptysis Airway is patent Respiratory effort is even, unlabored, Respiratory pattern is regular, Breath sounds are clear Breath sounds are diminished in right posterior middle lobe. GI: No signs and/or symptoms were reported involving the gastrointestinal system. Derm: Skin is pink, warm \T\ dry. Musculoskeletal: Circulation, motion, and sensation intact. Vital Signs: 06:24 BP 137 / 84; Pulse 72; Resp 16 S; Temp 98.2(O); Pulse Ox 97% on R/A; Weight 116.57 kg bb (R); Height 6 ft. 4 in. (193.04 cm) (R); 06:24 Body Mass Index 31.28 (116.57 kg, 193.04 cm) bb ED Course: 06:01 Patient arrived in ED. cl3 06:01 [facility]C [facility] la1 06:01 Lefty De La Cruz MD is Attending Physician. la1 06:23 Triage completed. bb 06:24 Arm band placed on Patient placed in an exam room, on a stretcher, on pulse oximetry. bb 06:26 Patient has correct armband on for positive identification. Placed in gown. Bed in low bb position. Call light in reach. Side rails up X 1. front desk monitor on. Pulse ox on. NIBP on. Warm blanket given. 06:32 EKG done. bb 06:34 Inserted saline lock: 20 gauge in right antecubital area, using aseptic technique. mw2 Blood collected. 07:17 Vonnie Laureano, RN is Primary Nurse. iw 07:29 Chest Pa And Lat (2 Views) XRAY In Process Unspecified. EDMS 07:53 No provider procedures requiring assistance completed. IV discontinued, intact, iw bleeding controlled, No redness/swelling at site. Pressure dressing applied. Administered Medications: 06:55 Drug: Zofran 4 mg Route: IVP; Site: right antecubital; bb 07:35 Follow up: Response: No adverse reaction iw 06:55 Drug: NS 0.9% 500 ml Route: IV; Rate: bolus; Site: right antecubital; bb Outcome: 07:26 Discharge ordered by . la1 07:53 Discharged to home ambulatory. iw 07:53 Condition: good 07:53 Discharge instructions given to patient, Instructed on discharge instructions, follow up and referral plans. Demonstrated understanding of instructions, follow-up care, medications, Prescriptions given X 1. 07:54 Patient left the ED. iw Signatures: Dispatcher [employer] EDMS Kay Avila RN RN bb Vonnie Laureano RN RN iw Percy Weinberg FNP-C FNP-[facility] Tori CaponeKena mw2 John, Rk cl3
--- NOTE | 2019-07-24 07:30 | EDPHYS ---
Physician Documentation [facility] Name: Sly Mcgee Age: 33 yrs Sex: Male : 1985 Arrival Date: 07/24/2019 Time: 06:01 Bed 23 Private MD: RIGOBERTO Physician Lefty De La Cruz HPI: 07/24 06:56 This 33 yrs old Male presents to ER via Ambulatory with complaints of Coughing la1 Blood. 06:56 The patient or guardian reports cough, described as moderate, hemoptysis. Onset: The la1 symptoms/episode began/occurred 2 day(s) ago. Severity of symptoms: At their worst the symptoms were moderate. Modifying factors: The symptoms are alleviated by nothing, the symptoms are aggravated by nothing. Associated signs and symptoms: Pertinent negatives: chest pain, diarrhea, ear ache, fever, nausea, rhinorrhea, sore throat, vomiting. The patient has experienced a previous episode, last year, and the symptoms today are exactly the same. Pt reports he was dx with the flu on Saturday one week ago, has had cough since then, two days ago began coughing up blood, smokes about 1 pack per week but quit 2-3 weeks ago. Pt is currently on amoxicillin. Historical: - Allergies: 06:24 No Known Allergies; bb - Home Meds: 06:24 Tamiflu Oral [Active]; Amoxicillin Oral [Active]; bb - PMHx: 06:24 Pneumonia; staph infections; bb - PSHx: 06:24 Knee surgery; bb - Immunization history:: Adult Immunizations up to date. - Social history:: Smoking status: Patient uses tobacco products, quit 2 weeks ago. - Ebola Screening: : No symptoms or risks identified at this time. ROS: 06:58 Constitutional: Negative for fever, chills, and weight loss, Eyes: Negative for injury, la1 pain, redness, and discharge, ENT: Negative for injury, pain, and discharge, Neck: Negative for injury, pain, and swelling, Cardiovascular: Negative for chest pain, palpitations, and edema. 06:58 Abdomen/GI: Negative for abdominal pain, nausea, vomiting, diarrhea, and constipation, Back: Negative for injury and pain, : Negative for injury, bleeding, discharge, and swelling, MS/Extremity: Negative for injury and deformity, Neuro: Negative for headache, weakness, numbness, tingling, and seizure. 06:58 Respiratory: Positive for cough, hemoptysis. Exam: 06:58 Constitutional: This is a well developed, well nourished patient who is awake, alert, la1 and in no acute distress. Head/Face: Normocephalic, atraumatic. Eyes: Pupils equal round and reactive to light, extra-ocular motions intact. Periorbital areas with no swelling, redness, or edema. ENT: . Mucous membranes moist. Neck: No Meningismus. Chest/axilla: Normal chest wall appearance and motion. Nontender with no deformity. No lesions are appreciated. Cardiovascular: Regular rate and rhythm with a normal S1 and S2. No gallops, murmurs, or rubs. Normal PMI, no JVD. No pulse deficits. 06:58 Abdomen/GI: Soft, non-tender, with normal bowel sounds.No guarding or rebound. No evidence of tenderness throughout. Male : Normal genitalia with no discharge or lesions. Skin: Warm, dry with normal turgor. Normal color with no rashes, no lesions, and no evidence of cellulitis. MS/ Extremity: Pulses equal, no cyanosis. Neurovascular intact. Full, normal range of motion. Neuro: Awake and alert, GCS 15, oriented to person, place, time, and situation. . Normal gait. 06:58 Respiratory: the patient does not display signs of respiratory distress, Respirations: normal, Breath sounds: wheezing: expiratory that is mild, is heard in the left posterior lower lobe. Vital Signs: 06:24 BP 137 / 84; Pulse 72; Resp 16 S; Temp 98.2(O); Pulse Ox 97% on R/A; Weight 116.57 kg bb (R); Height 6 ft. 4 in. (193.04 cm) (R); 06:24 Body Mass Index 31.28 (116.57 kg, 193.04 cm) bb MDM: 06:12 Patient medically screened. la1 07:23 Differential Diagnosis: Bronchitis Influenza Upper Respiratory Infection Viral Syndrome la1 Pneumonia Other PE. Data reviewed: vital signs, nurses notes, lab test result(s), EKG, radiologic studies, I have discussed the patient's presentation/case with the attending Emergency Department Physician; and as a result, I will discharge patient. Data interpreted: Pulse oximetry: on room air is 97 %. Interpretation: normal. Test interpretation: by ED physician or midlevel provider: ECG, plain radiologic studies. Counseling: I had a detailed discussion with the patient and/or guardian regarding: the historical points, exam findings, and any diagnostic results supporting the discharge/admit diagnosis, the presence of at least one elevated blood pressure reading (>120/80) during this emergency department visit, lab results, radiology results, the need for outpatient follow up, a family practitioner, to return to the emergency department if symptoms worsen or persist or if there are any questions or concerns that arise at home, smoking cessation. Special discussion: Based on the patient's history, exam, and Dx evaluation, there is no indication for emergent intervention or inpatient Tx. It is understood by the patient/guardian that if the Sx's persist or worsen they need to return immediately for re-evaluation. Based on the history and exam findings, there is no indication for further emergent testing or inpatient evaluation. I discussed with the patient/guardian the need to see the primary care provider for further evaluation of the symptoms. ED course: Pt comfortable in no resp distress, similar sx last year that resolved after abx, no tachycardia, no tachypnea, negative DDimer, Pt is a smoker, no leg swelling or pain. It is unlikely that the pt has a PE, will tx for PNE and give strict return precautions. 07/24 06:19 Order name: Basic Metabolic Panel 07/24 06:19 Order name: CBC with Diff; Complete Time: 07:20 07/24 06:19 Order name: PT-INR 07/24 06:19 Order name: Troponin (emerg Dept Use Only) 07/24 06:19 Order name: DD 07/24 06:19 Order name: Blood Culture Adult (2) 07/24 06:19 Order name: EKG; Complete Time: 06:21 07/24 06:19 Order name: EKG - Nurse/Tech; Complete Time: 06:43 07/24 06:19 Order name: IV Saline Lock; Complete Time: 06:43 07/24 06:19 Order name: Labs collected and sent; Complete Time: 06:43 07/24 06:19 Order name: O2 Per Protocol; Complete Time: 06:20 07/24 06:19 Order name: Chest Pa And Lat (2 Views) XRAY la1 07/24 06:19 Order name: O2 Sat Monitoring; Complete Time: :20 la Administered Medications: 06:55 Drug: Zofran 4 mg Route: IVP; Site: right antecubital; bb 07:35 Follow up: Response: No adverse reaction iw 06:55 Drug: NS 0.9% 500 ml Route: IV; Rate: bolus; Site: right antecubital; bb Disposition: 07/24/19 07:26 Discharged to Home. Impression: Pneumonia due to other specified bacteria, Cough, Hemoptysis. - Condition is Stable. - Discharge Instructions: Hemoptysis, Community-Acquired Pneumonia, Adult, Cough, Adult, Hemoptysis, [id number]. - Prescriptions for Zithromax Z- Jn 250 mg Oral Tablet - take 1 tablet by ORAL route as directed for 5 days Day 1 - take two (2) tablets one time. Day 2, 3, 4 , 5 take one (1) tablet once daily.; 6 tablet. - Work release form, Medication Reconciliation Form, Thank You Letter, Antibiotic Education form. - Follow up: Private Physician; When: 2 - 3 days; Reason: Recheck today's complaints, Re-evaluation by your physician. - Problem is new. - Symptoms are unchanged. Addendum: 07/27/2019 09:25 Co-signature as Attending Physician, Lefty De La Cruz MD I agree with the assessment and c alvarez plan of care. Signatures: Dispatcher [employer] Lefty Marcus MD MD cha Ballard, Brenda RN Vonnie Cornelius RN RN iw Attema, Lee, ENGINEER ASSISTANT-C ENGINEER ASSISTANT-Cla1 Corrections: (The following items were deleted from the chart) 07/24 07:54 07:26 07/24/2019 07:26 Discharged to Home. Impression: Pneumonia due to other specified iw bacteria; Cough; Hemoptysis. Condition is Stable. Forms are Medication Reconciliation Form, Thank You Letter, Antibiotic Education, Prescription Opioid Use. Follow up: Private Physician; When: 2 - 3 days; Reason: Recheck today's complaints, Re-evaluation by your physician. Problem is new. Symptoms are unchanged. la1
[2019-07-24 08:08] VITALS: BP 137/84; TEMP 98.2; O2SAT 97
--- NOTE | 2019-07-24 09:39 | RAD REPORT ---
EXAM DESCRIPTION: RAD - Chest Pa And Lat (2 Views) - 07/24/2019 6:57 am CLINICAL HISTORY: HEMOPTYSIS, flu-like symptoms, history of smoking COMPARISON: Chest Pa And Lat (2 Views) dated 12/02/2018 TECHNIQUE: Frontal and lateral views of the chest were obtained. FINDINGS: The lungs are clear of a focal finding. Interstitial pattern is similar to comparison. Hil ar regions are within normal limits and similar to comparison. Trachea is midline. Heart size is no rmal and central vasculature is within normal limits. No pleural effusion or pneumothorax seen. No acute bony finding noted. No aortic abnormality. IMPRESSION: No acute cardiopulmonary process. No significant change from comparison. Malignancy as an etiology for hemoptysis would be very unusual in a patient this age. Follow-up CT im aging of the chest could be performed if the patient has continued, unexplained hemoptysis.
--- NOTE | 2019-07-24 13:48 | EKG ---
Test Date: 2019-07-24 Test Time: 06:29:10 Hotel Or Motel Receptionist: MOISE MEASUREMENT RESULTS: Intervals: Rate: 69 SC: 156 QRSD: 88 QT: 398 QTc: 426 [place]: P: 44 SC: 156 QRS: 43 T: 20 INTERPRETIVE STATEMENTS: Normal sinus rhythm Normal ECG No previous ECG available for comparison Electronically Signed On 07-24-19 13:46:54 LEAD TECHNICAL ARCHITECT by Navneet Wayne
== END 2019-07-24 07:54 | disposition home or self-care (01) ==
LOC: ER 05:57
DX: J15.8 Pneumonia due to other specified bacteria (principal); R05 Cough; F17.210 Nicotine dependence, cigarettes, uncomplicated
CPT/HCPCS: 36415; 71046; 80048; 84484; 85025; 85379; 85610; 87040; 93005; 96374; 99284; J2405; J7040

== ENCOUNTER 2019-08-04 06:18 | Emergency (ER) | payer SELFPAY ==
--- OUTSIDE RECORDS SUMMARY | 2019-08-04 06:20 | XMS REPORT ---
:1985 [facility] Address [address] [place] [address] [address] [place] [address] Care Team Providers Name Role Phone Unavailable [...]
[2019-08-04] MEDS ORDERED: NA CHLORIDE 0.9% 1,000 ML ONE (07:07)
[2019-08-04] MEDS ORDERED: HYDROCODONE/CHLORPHEN 5 ML/OSYR ONE (07:07)
[2019-08-04 07:21] LABS: Absolute Lymphocytes (CBC) 0.8 K/uL (0.7-4.9); Basophils % 0.7 % (0-1.3); Hematocrit 41.6 % (39.6-49.0); MPV 8.3 fL (7.6-11.3); RBC Red Blood Cell Count 4.59 M/uL (4.33-5.43)
[2019-08-04 07:36] LABS: ALT/SGPT 60 U/L (12-78); AST/SGOT 32 U/L (15-37); Albumin 3.4 g/dL (3.4-5.0); Alkaline Phosphatase 89 U/L (45-117); BUN Blood Urea Nitrogen 8 mg/dL (7-18); Bicarbonate 28 mmol/L (21-32); Bilirubin Direct 0.1 mg/dL (0-0.2); Bilirubin Total 0.4 mg/dL (0.2-1.0); Glucose Level 111 mg/dL (74-106); Lipase 115 U/L (73-393); Potassium 3.6 mmol/L (3.5-5.1); Protein, Total 6.5 g/dL (6.4-8.2); Sodium Level 142 mmol/L (136-145)
--- NOTE | 2019-08-04 08:23 | RAD REPORT ---
EXAM DESCRIPTION: CT - Chest For Pe Angio - 08/04/2019 7:51 am CLINICAL HISTORY: recurrent hemoptysis COMPARISON: Chest Pa And Lat (2 Views) dated 07/24/2019 TECHNIQUE: Dynamically enhanced 3 mm thick images of the chest were obtained during administration o f approximately 150mL Isovue 370 IV contrast. Coronal and oblique MIP reconstruction images were gene rated and reviewed. Exam utilizes a protocol to evaluate the pulmonary arterial tree. All CT scans are performed using dose optimization technique as appropriate and may include automated exposure control or mA/KV adjustment according to patient size. FINDINGS: No pulmonary emboli are identified. The aorta as imaged shows no acute or suspicious finding. No pericardial thickening or effusion. No acute infiltrate and no suspicious mass lesion. There are 2 5 mm or less juxtapleural nodules carolyn g the major fissure in the right mid chest. A 5 mm subpleural nodule is present in the posterolateral lower right lung field. None of these are considered significant in a patient this age. No pleural e ffusion or pleural thickening. No pleural based mass. No endobronchial lesions identified. No mediastinal or hilar suspicious masses. No chest wall masses or abnormal axillary lymphadenopathy. IMPRESSION: No pulmonary emboli identified. No abnormality seen to explain hemoptysis. No acute chest finding identified.
--- NOTE | 2019-08-04 08:27 | EDPHYS ---
Physician Documentation [facility] Name: Sly Mcgee Age: 33 yrs Sex: Male : 1985 Arrival Date: 08/04/2019 Time: 06:20 Bed 7 Private MD: ED Physician Mikki Hoover HPI: 08/04 07:12 This 33 yrs old Male presents to ER via Ambulatory with complaints of Coughing snw Blood. 07:12 Onset: The symptoms/episode began/occurred gradually, 2 day(s) ago, and became snw persistent. Associated signs and symptoms: Pertinent positives: cough, sore throat, vomiting. Modifying factors: The patient symptoms are alleviated by nothing. The patient has experienced similar episodes in the past, several times, and the symptoms today are exactly the same, to previous Pt with pneumonia dx twice in 6 mo and hemoptysis three episodes in that timeframe. Pt has been visiting the [place] often. The patient has been recently seen by a physician: The patient has been recently seen at the [facility] Emergency Department, a couple of weeks ago, for similar complaints labs were performed, X-rays were performed, was given a prescription for antibiotics. Historical: - Allergies: 06:29 No Known Allergies; bb - Home Meds: 06:29 None [Active]; bb - PMHx: 06:29 Pneumonia; staph infections; bb - PSHx: 06:29 Knee surgery; bb - Immunization history:: Adult Immunizations up to date. - Social history:: Smoking status: Patient/guardian denies using tobacco, but has a distant history of tobacco abuse. - Ebola Screening: : No symptoms or risks identified at this time. ROS: 07:06 Constitutional: Negative for fever, chills, and weight loss, Eyes: Negative for injury, snw pain, redness, and discharge, ENT: Negative for injury, pain, and discharge, Neck: Negative for injury, pain, and swelling, Cardiovascular: Negative for chest pain, palpitations, and edema, Abdomen/GI: Negative for abdominal pain, nausea, vomiting, diarrhea, and constipation, Back: Negative for injury and pain, : Negative for injury, bleeding, discharge, and swelling, MS/Extremity: Negative for injury and deformity, Skin: Negative for injury, rash, and discoloration, Neuro: Negative for headache, weakness, numbness, tingling, and seizure. 07:06 Respiratory: Positive for cough, hemoptysis. Exam: 07:05 Constitutional: This is a well developed, well nourished patient who is awake, alert, snw and in no acute distress. Head/Face: Normocephalic, atraumatic. Eyes: Pupils equal round and reactive to light, extra-ocular motions intact. Lids and lashes normal. Conjunctiva and sclera are non-icteric and not injected. Cornea within normal limits. Periorbital areas with no swelling, redness, or edema. ENT: Nares patent. No nasal discharge, no septal abnormalities noted. Tympanic membranes are normal and external auditory canals are clear. Oropharynx with no redness, swelling, or masses, exudates, or evidence of obstruction, uvula midline. Mucous membranes moist. Neck: Trachea midline, no thyromegaly or masses palpated, and no cervical lymphadenopathy. Supple, full range of motion without nuchal rigidity, or vertebral point tenderness. No Meningismus. Chest/axilla: Normal chest wall appearance and motion. Nontender with no deformity. No lesions are appreciated. Cardiovascular: Regular rate and rhythm with a normal S1 and S2. No gallops, murmurs, or rubs. Normal PMI, no JVD. No pulse deficits. Respiratory: Lungs have equal breath sounds bilaterally, clear to auscultation and percussion. No rales, rhonchi or wheezes noted. No increased work of breathing, no retractions or nasal flaring. Abdomen/GI: Soft, non-tender, with normal bowel sounds. No distension or tympany. No guarding or rebound. No evidence of tenderness throughout. Back: No spinal tenderness. No costovertebral tenderness. Full range of motion. Skin: Warm, dry with normal turgor. Normal color with no rashes, no lesions, and no evidence of cellulitis. MS/ Extremity: Pulses equal, no cyanosis. Neurovascular intact. Full, normal range of motion. Neuro: Awake and alert, GCS 15, oriented to person, place, time, and situation. Cranial nerves II-XII grossly intact. Motor strength 5/5 in all extremities. Sensory grossly intact. Cerebellar exam normal. Normal gait. Psych: Awake, alert, with orientation to person, place and time. Behavior, mood, and affect are within normal limits. Vital Signs: 06:29 BP 140 / 91; Pulse 95; Resp 16 S; Temp 98.3; Pulse Ox 97% on R/A; Weight 117.93 kg (R); bb Height 6 ft. 4 in. (193.04 cm) (R); Pain 5/10; 07:30 BP 137 / 92; Pulse 89; Resp 18 S; Pulse Ox 97% on R/A; em 08:42 BP 141 / 87; Pulse 79; Resp 16; Pulse Ox 99% on R/A; em 06:29 Body Mass Index 31.65 (117.93 kg, 193.04 cm) bb MDM: 06:27 Patient medically screened. snw 08:28 Data reviewed: vital signs, nurses notes. Data interpreted: Pulse oximetry: on room air snw is 97 %. Interpretation: normal. Counseling: I had a detailed discussion with the patient and/or guardian regarding: the historical points, exam findings, and any diagnostic results supporting the discharge/admit diagnosis, the presence of at least one elevated blood pressure reading (>120/80) during this emergency department visit, lab results, radiology results, the need for outpatient follow up, to return to the emergency department if symptoms worsen or persist or if there are any questions or concerns that arise at home, smoking cessation. Special discussion: Based on the history and exam findings, there is no indication for further emergent testing or inpatient evaluation. I discussed with the patient/guardian the need to see the primary care provider for further evaluation of the symptoms. I discussed with the patient/guardian the need to see the [facility] for further evaluation of the symptoms. 08/04 06:51 Order name: Creatinine for Radiology; Complete Time: 07:48 w 08/04 06:51 Order name: Basic Metabolic Panel; Complete Time: 07:48 w 08/04 06:51 Order name: CT Chest For PE Angio; Complete Time: 08:23 w 08/04 06:51 Order name: CBC with Diff; Complete Time: 07:30 w 08/04 06:51 Order name: Hepatic Function; Complete Time: 07:48 w 08/04 06:51 Order name: Lipase; Complete Time: 07:48 w 08/04 06:51 Order name: IV Saline Lock; Complete Time: 07:14 snw 08/04 06:51 Order name: Labs collected and sent; Complete Time: 07:14 snw 08/04 07:10 Order name: Isolation - Respiratory; Complete Time: 07:17 snw Administered Medications: 07:08 Drug: Tussionex Pennkinetic ER 5 ml Route: PO; em 08:13 Follow up: Response: No adverse reaction em 07:12 Drug: NS 0.9% 1000 ml Route: IV; Rate: 1 bolus; Site: right antecubital; em 08:12 Follow up: IV Status: Completed infusion; IV Intake: 1000ml em Disposition: 08/04/19 08:26 Discharged to Home. Impression: Hemoptysis. - Condition is Stable. - Discharge Instructions: Gastroesophageal Reflux Disease, Adult, Hemoptysis, Smoking Hazards, Cough, Adult. - Prescriptions for Protonix 40 mg Oral Tablet - take 1 tablet by ORAL route once daily; 30 tablet. Tessalon Perles 100 mg Oral Capsule - take 1 capsule by ORAL route every 8 hours As needed; 15 capsule. - Work release form, Medication Reconciliation Form, Thank You Letter, Antibiotic Education, Prescription Opioid Use form. - Follow up: Emergency Department; When: As needed; Reason: Worsening of condition. Follow up: Zach Hutchinson MD; When: 2 - 3 days; Reason: Recheck today's complaints, Continuance of care. Addendum: 08/08/2019 15:29 Co-signature as Attending Physician, Mikki Hoover MD. m a2 Signatures: Dispatcher [employer] EDWV Marta Leonard, GLADIS-C TYPESETTING SUPERVISOR-CsnRobin Mahmood RN RN em Kay Avila RN RN bb Alzahri, Mohammad, MD MD ma2 Corrections: (The following items were deleted from the chart) 08/04 08:43 08:26 08/04/2019 08:26 Discharged to Home. Impression: Hemoptysis. Condition is Stable. em Forms are Medication Reconciliation Form, Thank You Letter, Antibiotic Education, Prescription Opioid Use. Follow up: Emergency Department; When: As needed; Reason: Worsening of condition. Follow up: Zach Hutchinson; When: 2 - 3 days; Reason: Recheck today's complaints, Continuance of care. snw
--- NOTE | 2019-08-04 08:27 | ER ---
Nurse's Notes [facility] Name: Sly Mcgee Age: 33 yrs Sex: Male : 1985 Arrival Date: 08/04/2019 Time: 06:20 Bed 7 Private MD: Diagnosis: Hemoptysis Presentation: 08/04 06:27 Presenting complaint: Patient states: he has been coughing up blood x 1 week has had bb same symptoms in the past and was diagnosed with pneumonia then. Transition of care: patient was not received from another setting of care. Onset of symptoms was July 28, 2019. Risk Assessment: Do you want to hurt yourself or someone else? Patient reports no desire to harm self or others. Initial Sepsis Screen: Does the patient meet any 2 criteria? No. Patient's initial sepsis screen is negative. Does the patient have a suspected source of infection? No. Patient's initial sepsis screen is negative. Care prior to arrival: None. 06:27 Method Of Arrival: Ambulatory bb 06:27 Acuity: MARIE 3 bb Historical: - Allergies: 06:29 No Known Allergies; bb - Home Meds: 06:29 None [Active]; bb - PMHx: 06:29 Pneumonia; staph infections; bb - PSHx: 06:29 Knee surgery; bb - Immunization history:: Adult Immunizations up to date. - Social history:: Smoking status: Patient/guardian denies using tobacco, but has a distant history of tobacco abuse. - Ebola Screening: : No symptoms or risks identified at this time. Screenin:05 Abuse screen: Denies threats or abuse. Nutritional screening: No deficits noted. em Tuberculosis screening: No symptoms or risk factors identified. Fall Risk None identified. Assessment: 06:29 General: Appears in no apparent distress. Behavior is appropriate for age. Pain: lp1 Complains of pain in chest, throat. Neuro: Level of Consciousness is awake, alert, obeys commands. Cardiovascular: Patient's skin is warm and dry. Respiratory: Reports cough that is productive, states "there is flem mixed with some blood" Respiratory effort is even, unlabored, Breath sounds are clear bilaterally. GI: No signs and/or symptoms were reported involving the gastrointestinal system. : No signs and/or symptoms were reported regarding the genitourinary system. EENT: Reports pain when swallowing. Derm: Skin is pink, warm \\T\\ dry. Musculoskeletal: No deficits noted. 07:05 General: Appears in no apparent distress. comfortable, Behavior is calm, cooperative. em Cardiovascular: Capillary refill < 3 seconds Patient's skin is warm and dry. Respiratory: Reports cough that is blood in sputum Airway is patent Respiratory effort is even, unlabored, Respiratory pattern is regular, symmetrical. Derm: Skin is intact, is healthy with good turgor, Skin is pink, warm \\T\\ dry. Musculoskeletal: Capillary refill < 3 seconds, Range of motion: intact in all extremities. 07:46 Reassessment: placed on isolation, pt wheeled to CT via stretcher with N 95 mask. em 08:33 Reassessment: Patient appears in no apparent distress at this time. Patient and/or em family updated on plan of care and expected duration. Pain level reassessed. Patient is alert, oriented x 3, equal unlabored respirations, skin warm/dry/pink. Vital Signs: 06:29 BP 140 / 91; Pulse 95; Resp 16 S; Temp 98.3; Pulse Ox 97% on R/A; Weight 117.93 kg (R); bb Height 6 ft. 4 in. (193.04 cm) (R); Pain 5/10; 07:30 BP 137 / 92; Pulse 89; Resp 18 S; Pulse Ox 97% on R/A; em 08:42 BP 141 / 87; Pulse 79; Resp 16; Pulse Ox 99% on R/A; em 06:29 Body Mass Index 31.65 (117.93 kg, 193.04 cm) bb ED Course: 06:20 Patient arrived in ED. cl3 06:27 Marta Leonard FNP-C is PHCP. snw 06:27 Mikki Hoover MD is Attending Physician. snw 06:28 Triage completed. bb 06:29 Arm band placed on Patient placed in an exam room, on a stretcher, on pulse oximetry. bb 07:02 Robin Abad, RN is Primary Nurse. em 07:05 Patient has correct armband on for positive identification. Placed in gown. Bed in low em position. Call light in reach. Side rails up X2. Pulse ox on. NIBP on. 07:10 Initial lab(s) drawn, by me, sent to lab. Inserted saline lock: 20 gauge in right em antecubital area, using aseptic technique. Blood collected. 07:51 CT Chest For PE Angio In Process Unspecified. EDMS 08:24 Zach Hutchinson MD is Referral Physician. snw 08:41 No provider procedures requiring assistance completed. IV discontinued, intact, em bleeding controlled, No redness/swelling at site. Pressure dressing applied. Administered Medications: 07:08 Drug: Tussionex Pennkinetic ER 5 ml Route: PO; em 08:13 Follow up: Response: No adverse reaction em 07:12 Drug: NS 0.9% 1000 ml Route: IV; Rate: 1 bolus; Site: right antecubital; em 08:12 Follow up: IV Status: Completed infusion; IV Intake: 1000ml em Intake: 08:12 IV: 1000ml; Total: 1000ml. em Outcome: 08:26 Discharge ordered by . snw 08:41 Discharged to home ambulatory. em 08:41 Condition: good 08:41 Discharge instructions given to patient, Instructed on discharge instructions, follow up and referral plans. medication usage, Demonstrated understanding of instructions, follow-up care, medications, Prescriptions given X 2. 08:43 Patient left the ED. em Signatures: Dispatcher [employer] EDSC Marta Leonard, PREMISES TECHNICIAN-C PREMISES TECHNICIAN-[place] Robin Abad, RN RN em Kay Avila, RN RN bb Claribel Dejesus, CRAIG RN lp1 Rk Lopez cl3
[2019-08-04 08:53] VITALS: TEMP 98.3
[2019-08-04 08:59] VITALS: BP 141/87; O2SAT 99
== END 2019-08-04 08:43 | disposition home or self-care (01) ==
LOC: ER 06:18
DX: R04.2 Hemoptysis (principal)
CPT/HCPCS: 36415; 71275; 80048; 80076; 83690; 85025; 96360; 99284; J7030; Q9967

== ENCOUNTER 2019-10-15 19:32 | Emergency (ER) | payer SELFPAY ==
--- OUTSIDE RECORDS SUMMARY | 2019-10-15 19:34 | XMS REPORT ---
:1985 [facility] Address [address] [place] [address] Dr. Camejo. [address] [place] [address] Care Team Providers Name Role Phone Unavailable [...]
--- NOTE | 2019-10-15 20:36 | EDPHYS ---
Physician Documentation [facility] Name: Sly Mcgee Age: 34 yrs Sex: Male : 1985 Arrival Date: 10/15/2019 Time: 19:35 Bed 30 Private MD: ED Physician Mikki Hoover HPI: 10/14 20:33 This 34 yrs old Male presents to ER via Ambulatory with complaints of Fever. kb 20:33 The patient or guardian reports cough, that is intermittent, described as mild, with no kb sputum, flu symptoms, low-grade fever. Onset: The symptoms/episode began/occurred this morning. Severity of symptoms: At their worst the symptoms were mild, moderate, in the emergency department the symptoms are unchanged. Modifying factors: The symptoms are alleviated by nothing, the symptoms are aggravated by nothing. Associated signs and symptoms: Pertinent positives: fever, rhinorrhea, sore throat, Pertinent negatives: chest pain, diarrhea, ear ache, nausea, vomiting. The patient has not experienced similar symptoms in the past. The patient has not recently seen a physician. Pt reports he has had seasonal allergies and felt warm when he woke up this morning. Called his boss and told him he felt warm so his boss told him to stay home and get a dr's note before returning. Reports he went to a clinic but they couldn't test for covid and give him a note so he came here. . Historical: - Allergies: 19:47 No Known Allergies; ca1 - PMHx: 19:47 Pneumonia; staph infections; ca1 - PSHx: 19:47 Knee surgery; ca1 - Immunization history:: Adult Immunizations up to date, Flu vaccine is up to date. - Social history:: Smoking status: Patient/guardian denies using tobacco, Stopped _ months ago 1. ROS: 20:27 Neck: Negative for injury, pain, and swelling, Cardiovascular: Negative for chest pain, kb palpitations, and edema, Abdomen/GI: Negative for abdominal pain, nausea, vomiting, diarrhea, and constipation, Back: Negative for injury and pain, MS/Extremity: Negative for injury and deformity, Skin: Negative for injury, rash, and discoloration, Neuro: Negative for headache, weakness, numbness, tingling, and seizure. 20:27 Constitutional: Positive for fever, Negative for body aches, chills, fatigue, malaise, poor PO intake, weight loss. 20:27 ENT: Positive for sinus congestion, sore throat. 20:27 Respiratory: Positive for cough, Negative for dyspnea on exertion, hemoptysis, orthopnea, pleurisy, shortness of breath, sputum production, wheezing. Exam: 20:27 Constitutional: This is a well developed, well nourished patient who is awake, alert, kb and in no acute distress. Head/Face: Normocephalic, atraumatic. ENT: Nares patent. No nasal discharge, no septal abnormalities noted. Tympanic membranes are normal and external auditory canals are clear. Oropharynx with no redness, swelling, or masses, exudates, or evidence of obstruction, uvula midline. Mucous membranes moist. Neck: Trachea midline, no thyromegaly or masses palpated, and no cervical lymphadenopathy. Supple, full range of motion without nuchal rigidity, or vertebral point tenderness. No Meningismus. Chest/axilla: Normal chest wall appearance and motion. Nontender with no deformity. No lesions are appreciated. Cardiovascular: Regular rate and rhythm with a normal S1 and S2. No gallops, murmurs, or rubs. Normal PMI, no JVD. No pulse deficits. Respiratory: Lungs have equal breath sounds bilaterally, clear to auscultation and percussion. No rales, rhonchi or wheezes noted. No increased work of breathing, no retractions or nasal flaring. Abdomen/GI: Soft, non-tender, with normal bowel sounds. No distension or tympany. No guarding or rebound. No evidence of tenderness throughout. Back: No spinal tenderness. No costovertebral tenderness. Full range of motion. Skin: Warm, dry with normal turgor. Normal color with no rashes, no lesions, and no evidence of cellulitis. MS/ Extremity: Pulses equal, no cyanosis. Neurovascular intact. Full, normal range of motion. Neuro: Awake and alert, GCS 15, oriented to person, place, time, and situation. Cranial nerves II-XII grossly intact. Motor strength 5/5 in all extremities. Sensory grossly intact. Cerebellar exam normal. Normal gait. Vital Signs: 19:41 BP 142 / 92; Pulse 67; Resp 17 S; Temp 99(TE); Pulse Ox 99% on R/A; Weight 116.57 kg ca1 (R); Height 6 ft. 4 in. (193.04 cm) (R); Pain 0/10; 20:35 BP 131 / 84; Pulse 79; Resp 16; Temp 98.3(O); Pulse Ox 98% ; lt1 19:41 Body Mass Index 31.28 (116.57 kg, 193.04 cm) ca1 MDM: 19:50 Patient medically screened. kb 20:32 Data reviewed: vital signs, nurses notes. Data interpreted: Pulse oximetry: on room air kb is 99 %. Interpretation: normal. Counseling: I had a detailed discussion with the patient and/or guardian regarding: the historical points, exam findings, and any diagnostic results supporting the discharge/admit diagnosis, lab results, the need for outpatient follow up, a family practitioner, to return to the emergency department if symptoms worsen or persist or if there are any questions or concerns that arise at home. 10/14 19:46 Order name: Flu; Complete Time: : kb 10/14 19:46 Order name: Strep; Complete Time: 20: kb 10/14 20:30 Order name: Throat Culture EDMS Administered Medications: No medications were administered Disposition: 10/15/19 20:35 Discharged to Home. Impression: Acute upper respiratory infection, unspecified. - Condition is Stable. - Discharge Instructions: Upper Respiratory Infection, Adult, [id number], Viral Respiratory Infection, [id number]. - Medication Reconciliation Form, Thank You Letter, Antibiotic Education, Prescription Opioid Use form. - Follow up: Emergency Department; When: As needed; Reason: Worsening of condition. Follow up: Private Physician; When: 2 - 3 days; Reason: Recheck today's complaints, Continuance of care, Re-evaluation by your physician. - Notes: Please call [facility] hotline for testing instructions Addendum: 10/17/2019 02:29 Co-signature as Attending Physician, Mikki Hoover MD. m a2 Signatures: Dispatcher [employer] EDJazmin Duarte FNP-C FNP-Ckb Antunez, Elena, RN RN ea Alzahri, Mohammad, MD MD fl2 Patty Cornelius RN RN ca1 Corrections: (The following items were deleted from the chart) 10/14 20:47 20:35 10/15/2019 20:35 Discharged to Home. Impression: Acute upper respiratory ea infection, unspecified. Condition is Stable. Forms are Medication Reconciliation Form, Thank You Letter, Antibiotic Education, Prescription Opioid Use. Follow up: Emergency Department; When: As needed; Reason: Worsening of condition. Follow up: Private Physician; When: 2 - 3 days; Reason: Recheck today's complaints, Continuance of care, Re-evaluation by your physician. kb
--- NOTE | 2019-10-15 20:36 | ER ---
Nurse's Notes [facility] Name: Sly Mcgee Age: 34 yrs Sex: Male : 1985 Arrival Date: 10/15/2019 Time: 19:35 Bed 30 Private MD: Diagnosis: Acute upper respiratory infection, unspecified Presentation: 10/14 19:41 Chief complaint: Patient states: "I felt warm this morning, I think I had a fever. 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 Coronavirus screen: Surgical mask placed on patient. Patient moved to private room, placed in contact and droplet isolation with eye protection until further assessment. Patient reports a cough. Patient denies shortness of breath or difficulty breathing. Patient reports a measured and/or subjective temperature greater than 100.4F. Patient denies travel on a cruise ship or to a country the [facility] currently lists as an affected area. Patient denies contact with known and/or suspected case of COVID-19. Ebola Screen: Patient negative for fever greater than or equal to 101.5 degrees Fahrenheit, and additional compatible Ebola Virus Disease symptoms Patient denies exposure to infectious person. Patient denies travel to an Ebola-affected area in the 21 days before illness onset. No symptoms or risks identified at this time. Initial Sepsis Screen: Does the patient meet any 2 criteria? No. Patient's initial sepsis screen is negative. Does the patient have a suspected source of infection? No. Patient's initial sepsis screen is negative. Risk Assessment: Do you want to hurt yourself or someone else? Patient reports no desire to harm self or others. Onset of symptoms was October 15, 2019. 19:41 Method Of Arrival: Ambulatory ca1 19:41 Acuity: MARIE 4 ca1 Historical: - Allergies: 19:47 No Known Allergies; ca1 - PMHx: 19:47 Pneumonia; staph infections; ca1 - PSHx: 19:47 Knee surgery; ca1 - Immunization history:: Adult Immunizations up to date, Flu vaccine is up to date. - Social history:: Smoking status: Patient/guardian denies using tobacco, Stopped _ months ago 1. Screenin:11 Abuse screen: Denies threats or abuse. Nutritional screening: No deficits noted. ea Tuberculosis screening: No symptoms or risk factors identified. Fall Risk None identified. Assessment: 20:11 General: Appears in no apparent distress. Behavior is calm, cooperative, appropriate ea for age. Pain: Denies pain. Neuro: Level of Consciousness is awake, alert, obeys commands, Oriented to person, place, time, situation. Cardiovascular: Patient's skin is warm and dry. Respiratory: Airway is patent Respiratory effort is even, unlabored, Respiratory pattern is regular, symmetrical. Derm: Skin is pink, warm \\T\\ dry. 20:45 Reassessment: Patient and/or family updated on plan of care and expected duration. Pain ea level reassessed. Patient is alert, oriented x 3, equal unlabored respirations, skin warm/dry/pink. Discharge instruction given to patient, verbalized the understanding of instruction. Pt left ED ambulatory tolerating well. Vital Signs: 19:41 BP 142 / 92; Pulse 67; Resp 17 S; Temp 99(TE); Pulse Ox 99% on R/A; Weight 116.57 kg ca1 (R); Height 6 ft. 4 in. (193.04 cm) (R); Pain 0/10; 20:35 BP 131 / 84; Pulse 79; Resp 16; Temp 98.3(O); Pulse Ox 98% ; lt1 19:41 Body Mass Index 31.28 (116.57 kg, 193.04 cm) ca1 ED Course: 19:35 Patient arrived in ED. mr 19:36 Rachid JazminTERRY decker is [facility]. kb 19:36 Mikki Hoover MD is Attending Physician. kb 19:45 Triage completed. ca1 19:47 Arm band placed on right wrist. ca1 19:51 Flu Sent. ca1 19:51 Strep Sent. ca1 20:04 Hanna Cadena, CRAIG is Primary Nurse. ea 20:11 Patient has correct armband on for positive identification. Bed in low position. Call ea light in reach. Side rails up X2. 20:21 Strep Sent. ea 20:21 Flu Sent. ea 20:40 No provider procedures requiring assistance completed. Patient did not have IV access ea during this emergency room visit. Administered Medications: No medications were administered Outcome: 20:35 Discharge ordered by . kb 20:46 Discharged to home ambulatory. ea 20:46 Condition: stable 20:46 Discharge instructions given to patient, Instructed on discharge instructions, follow up and referral plans. Demonstrated understanding of instructions, follow-up care. 20:47 Patient left the ED. ea Signatures: Jazmin Rashid, TERRY GRIFFITH-Mahi Fuentes mr CadenaHanna stuart, RN RN Patty Samuels, RN CRAIG Prado, Judy lt1
[2019-10-15 20:57] VITALS: BP 131/84; TEMP 98.3; O2SAT 98
== END 2019-10-15 20:47 | disposition home or self-care (01) ==
LOC: ER 19:32
DX: J06.9 Acute upper respiratory infection, unspecified (principal)
CPT/HCPCS: 87070; 87081; 87804; 99283

== ENCOUNTER 2019-10-23 09:16 | Emergency (ER) | payer SELFPAY ==
--- OUTSIDE RECORDS SUMMARY | 2019-10-23 09:18 | XMS REPORT ---
:1985 [facility] Address [address] [place] [address] Dr. Camejo. [address] [place] [address] Care Team Providers Name Role Phone Unavailable [...]
[2019-10-23] MEDS ORDERED: KETOROLAC 30 MG/ML INJ ONE (09:50)
[2019-10-23] MEDS ORDERED: dexAMETHasone 10 MG/ML VIAL ONE (09:50)
--- NOTE | 2019-10-23 10:25 | ER ---
Nurse's Notes [facility] Name: Sly Mcgee Age: 34 yrs Sex: Male : 1985 Arrival Date: 10/23/2019 Time: 09:18 Bed 18 Private MD: Diagnosis: Low back pain;Radiculopathy, lumbar region Presentation: 10/22 09:31 Chief complaint: Patient states: BACK PAIN RADIATING TO BOTH HIPS x2 DAYS. Coronavirus bp screen: Patient denies fever greater than 100.4F, cough, shortness of breath, or difficulty breathing. Proceed with normal triage process. Ebola Screen: No symptoms or risks identified at this time. Initial Sepsis Screen: Does the patient meet any 2 criteria? No. Patient's initial sepsis screen is negative. Does the patient have a suspected source of infection? No. Patient's initial sepsis screen is negative. Risk Assessment: Do you want to hurt yourself or someone else? Patient reports no desire to harm self or others. 09:31 Method Of Arrival: Ambulatory bp 09:31 Acuity: MARIE 5 bp Triage Assessment: 09:34 General: Appears in no apparent distress. comfortable, Behavior is cooperative, bp appropriate for age, anxious. Pain:. EENT: No deficits noted. Neuro: No deficits noted. Cardiovascular: No deficits noted. Respiratory: No deficits noted. GI: No signs and/or symptoms were reported involving the gastrointestinal system. : No signs and/or symptoms were reported regarding the genitourinary system. Derm: No deficits noted. Musculoskeletal: No signs and/or symptoms reported regarding the musculoskeletal system. Range of motion: intact in all extremities. Historical: - Allergies: 09:34 No Known Allergies; bp - Home Meds: 09:34 None [Active]; bp - PMHx: 09:34 Pneumonia; staph infections; bp - Immunization history:: Adult Immunizations unknown. - Social history:: Smoking status: Patient denies any tobacco usage or history of. - Family history:: not pertinent. - Hospitalizations: : No recent hospitalization is reported. Screenin:38 Abuse screen: Denies threats or abuse. Denies injuries from another. Nutritional bp screening: No deficits noted. Tuberculosis screening: No symptoms or risk factors identified. Fall Risk None identified. Assessment: 09:38 General: SEE TRIAGE NOTE. Neuro: Level of Consciousness is awake, alert, obeys bp commands, Oriented to person, place, time, situation, Appropriate for age 10:00 Reassessment: PT TO XRAY. bp 11:04 Reassessment: PT D/C HOME AMBULATORY, DX WITH RADICULOPATHY. bp Vital Signs: 09:31 BP 134 / 83; Pulse 65; Resp 17; Temp 98.1; Pulse Ox 95% ; Weight 117.93 kg; Height 6 bp ft. 4 in. (193.04 cm); 10:00 BP 125 / 75; Pulse 64; Resp 16; Pulse Ox 97% ; bp 11:04 BP 133 / 83; Pulse 79; Resp 17; Pulse Ox 98% ; bp 09:31 Body Mass Index 31.65 (117.93 kg, 193.04 cm) bp ED Course: 09:18 Patient arrived in ED. ag5 09:30 Oliver Werner MD is Attending Physician. rn 09:31 Fritz Sung, CRAIG is Primary Nurse. bp 09:33 Triage completed. bp 09:34 Arm band placed on. bp 09:38 Patient has correct armband on for positive identification. Bed in low position. Call bp light in reach. Side rails up X2. 10:57 XRAY Thoracic Spine (Ap/lat) In Process Unspecified. EDMS 10:57 XRAY Lumbar Spine (3 Views) In Process Unspecified. EDMS 11:04 No provider procedures requiring assistance completed. Patient did not have IV access bp during this emergency room visit. Administered Medications: 09:56 Drug: Ketorolac 60 mg Route: IM; Site: right gluteus; bp 11:06 Follow up: Response: Pain is decreased bp 09:56 Drug: Decadron 10 mg Route: IM; Site: right gluteus; bp 11:06 Follow up: Response: Pain is decreased bp Outcome: 10:24 Discharge ordered by . rn 11:04 Discharged to home ambulatory. bp 11:04 Condition: stable 11:04 Discharge instructions given to patient, Instructed on discharge instructions, follow up and referral plans. medication usage, Demonstrated understanding of instructions, follow-up care, medications, Prescriptions given X 2. 11:06 Patient left the ED. bp Signatures: Dispatcher [employer] EDMS Oliver Werner MD MD rn Fritz Sung, RN RN bp [place] ag5
--- NOTE | 2019-10-23 10:25 | EDPHYS ---
Physician Documentation [facility] Name: Sly Mcgee Age: 34 yrs Sex: Male : 1985 Arrival Date: 10/23/2019 Time: 09:18 Bed 18 Private MD: ED Physician Oliver Werner HPI: 10/22 09:39 This 34 yrs old Male presents to ER via Ambulatory with complaints of Back rn Pain, Shoulder Pain. 09:39 The patient presents with pain that is acute, with no known mechanism of injury. The rn symptoms are located in the low back, lumbar area. Onset: The symptoms/episode began/occurred. 09:40 Onset: The symptoms/episode began/occurred 2 day(s) ago. The pain radiates to the right rn leg. Associated signs and symptoms: The patient has no apparent associated signs or symptoms, Pertinent negatives: abdominal pain, chest pain, constipation, dysuria, fever, headache, hematuria, incontinence, nausea, numbness, tingling, urinary retention, vomiting, weakness. Modifying factors: The patient symptoms are alleviated by remaining still, specific position, the patient symptoms are aggravated by any movement. Severity of symptoms: At their worst the symptoms were mild, in the emergency department the symptoms are unchanged. The patient has not experienced similar symptoms in the past. 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 Denies IV drug use. Not diabetic. . Historical: - Allergies: 09:34 No Known Allergies; bp - Home Meds: 09:34 None [Active]; bp - PMHx: 09:34 Pneumonia; staph infections; bp - Immunization history:: Adult Immunizations unknown. - Social history:: Smoking status: Patient denies any tobacco usage or history of. - Family history:: not pertinent. - Hospitalizations: : No recent hospitalization is reported. ROS: 09:40 Constitutional: Negative for fever, chills, and weight loss, Eyes: Negative for injury, rn pain, redness, and discharge, Neck: Negative for injury, pain, and swelling, Cardiovascular: Negative for chest pain, palpitations, and edema, Respiratory: Negative for shortness of breath, cough, wheezing, and pleuritic chest pain, Abdomen/GI: Negative for abdominal pain, nausea, vomiting, diarrhea, and constipation, Back: + mid/low back pain MS/Extremity: Negative for injury and deformity, Skin: Negative for injury, rash, and discoloration, Neuro: Negative for headache, weakness, numbness, tingling, and seizure. Exam: 09:40 Constitutional: This is a well developed, well nourished patient who is awake, alert, rn and in no acute distress. Ambulatory to room without assistance or distress Head/Face: Normocephalic, atraumatic. Back: No spinal tenderness. No costovertebral tenderness. Full range of motion. Skin: Warm, dry MS/ Extremity: Pulses equal, no cyanosis. Neurovascular intact. Full, normal range of motion. Equal circumference. + reproducible pain with right leg straight leg raise Neuro: Awake and alert, GCS 15 Vital Signs: 09:31 BP 134 / 83; Pulse 65; Resp 17; Temp 98.1; Pulse Ox 95% ; Weight 117.93 kg; Height 6 bp ft. 4 in. (193.04 cm); 10:00 BP 125 / 75; Pulse 64; Resp 16; Pulse Ox 97% ; bp 11:04 BP 133 / 83; Pulse 79; Resp 17; Pulse Ox 98% ; bp 09:31 Body Mass Index 31.65 (117.93 kg, 193.04 cm) bp MDM: 09:30 Patient medically screened. rn 10:00 ED course: [facility] shows score of 020/010/000/110.. rn 10:23 Differential diagnosis: arthritis, chronic back pain, Fracture Osteoarthritis sprain, rn radiculopathy. Data reviewed: vital signs, nurses notes, radiologic studies, plain films, and as a result, I will discharge patient. Test interpretation: by ED physician or midlevel provider: plain radiologic studies, Xray thoracic and lumbar spine no acute findings. Counseling: I had a detailed discussion with the patient and/or guardian regarding: the historical points, exam findings, and any diagnostic results supporting the discharge/admit diagnosis, radiology results, the need for outpatient follow up, to return to the emergency department if symptoms worsen or persist or if there are any questions or concerns that arise at home. 10:23 Special discussion: I discussed with the patient/guardian in detail that at this point rn there is no indication for admission to the hospital. It is understood, however, that if the symptoms persist or worsen the patient needs to return immediately for re-evaluation. Further emergent ED testing is not indicated at this point in time. I discussed with the patient/guardian in detail the need to arrange with the PCP or specialist further outpatient testing, MRI. 04 09:39 Order name: XRAY Thoracic Spine (Ap/lat) rn 10/22 09:39 Order name: XRAY Lumbar Spine (3 Views) rn Administered Medications: 09:56 Drug: Ketorolac 60 mg Route: IM; Site: right gluteus; bp 11:06 Follow up: Response: Pain is decreased bp 09:56 Drug: Decadron 10 mg Route: IM; Site: right gluteus; bp 11:06 Follow up: Response: Pain is decreased bp Disposition: 10/23/19 10:24 Discharged to Home. Impression: Low back pain, Radiculopathy, lumbar region. - Condition is Stable. - Discharge Instructions: Back Pain, Adult, Lumbosacral Radiculopathy. - Prescriptions for Cyclobenzaprine 10 mg Oral Tablet - take 1 tablet by ORAL route every 8 hours As needed; 20 tablet. Medrol (Jn) 4 mg Oral Tablets, Dose Pack - take 1 tablet by ORAL route as directed - follow package instructions; 1 packet. - Medication Reconciliation Form, Thank You Letter, Antibiotic Education, Prescription Opioid Use, Work release form form. - Follow up: Private Physician; When: As needed; Reason: Recheck today's complaints, Re-evaluation by your physician. - Problem is new. - Symptoms are unchanged. Signatures: Dispatcher [employer] EDMS Oliver Werner MD MD rn Peltier, Brian, RN RN bp Corrections: (The following items were deleted from the chart) 11:06 10:24 10/23/2019 10:24 Discharged to Home. Impression: Low back pain; Radiculopathy, bp lumbar region. Condition is Stable. Discharge Instructions: Back Pain, Adult, Lumbosacral Radiculopathy. Prescriptions for Cyclobenzaprine 10 mg Oral Tablet - take 1 tablet by ORAL route every 8 hours As needed; 20 tablet, Medrol (Jn) 4 mg Oral Tablets, Dose Pack - take 1 tablet by ORAL route as directed - follow package instructions; 1 packet. and Forms are Medication Reconciliation Form, Thank You Letter, Antibiotic Education, Prescription Opioid Use. Follow up: Private Physician; When: As needed; Reason: Recheck today's complaints, Re-evaluation by your physician. Problem is new. Symptoms are unchanged. rn
--- NOTE | 2019-10-23 11:09 | RAD REPORT ---
EXAM DESCRIPTION: RAD - Lumbar Spine 3 Views - 10/23/2019 10:57 am CLINICAL HISTORY: Back pain FINDINGS: The alignment of the lumbar spine is satisfactory. No fracture or dislocation is seen. No significant bone or joint abnormality seen Vague calcific densities overlie the right upper quadrant. If the patient has clinical symptoms to vela ggest gallstones then ultrasound would be recommended
--- NOTE | 2019-10-23 11:10 | RAD REPORT ---
EXAM DESCRIPTION: RAD - Thoracic Spine Ap/Lat - 10/23/2019 10:57 am CLINICAL HISTORY: Back pain FINDINGS: The alignment of the thoracic spine is satisfactory. No fracture is seen. Minimal spondylosis is present. Minimal scoliosis is seen
[2019-10-23 11:12] VITALS: TEMP 98.1
[2019-10-23 11:15] VITALS: BP 133/83; O2SAT 98
== END 2019-10-23 11:06 | disposition home or self-care (01) ==
LOC: ER 09:16
DX: M54.16 Radiculopathy, lumbar region (principal); M47.816 Spondylosis without myelopathy or radiculopathy, lumbar region; M41.86 Other forms of scoliosis, lumbar region
CPT/HCPCS: 72070; 72100; 96372; 99283; J1100